=== PATIENT | female | born 2000 | race Caucasian/White ===

== ENCOUNTER 2020-10-02 06:46 | Emergency (ER) | payer OTHER, SELFPAY ==
--- NOTE | ~2020-10-02 | CT_ITS ---
EXAMINATION: CT abdomen pelvis w con EXAM DATE: 10/02/2020 08:05 INDICATION: RLQ pain . Status post kidney infection. TECHNIQUE: Spiral CT of the abdomen and pelvis was performed following intravenous injection of 100 m L Omnipaque 350. Axial, coronal and sagittal images were reviewed. The dose-length product (DLP) fo r this examination was 271.01 mGy-cm. The exposure was tailored according to patient size (auto mA e xposure control), and iterative reconstruction (ASIR) was used as additional dose reduction technique . There is no prior study for comparison. FINDINGS: The liver, spleen, adrenal glands and pancreas are unremarkable. Gallbladder is unremarkab le. No biliary obstruction. Portal and splenic veins are patent. Kidneys enhance symmetrically. T here is no hydronephrosis. The uterus and ovaries are unremarkable, no adnexal mass. The bladder i s undistended at time of imaging. There is no retroperitoneal or pelvic lymphadenopathy. The appendix is normal. The stomach and small bowel are unremarkable. There is moderate amount of c olonic stool. No free intraperitoneal gas. The heart is normal in size. There are no pericardial or pleural effusions. The lung bases are unremarkable. The bones are unremarkable. IMPRESSION: 1. No acute intra-abdominal findings. Normal appendix. Reviewed, dictated and finalized at location B. ER GUIDE
[2020-10-02 06:51] VITALS: BP 108/51; PULSE 104; RESP 22; TEMP 36.2; O2SAT 100
[2020-10-02 07:13] LABS: Add Urine Microscopic? YES; Appearance Urine Clear (Clear); Bilirubin Urine Negative (Negative); Blood Urine 2+ (Negative); Color Urine Yellow (Yellow); Glucose Urine UA Negative (Negative); Ketones Urine Negative (Negative); Leukocyte Esterase Ur Negative LEU/UL (Negative); Mucus Urine Rare /lpf; Nitrate Urine Negative (Negative); Protein Urine Negative (Negative); RBC Urine 0-2 /hpf (0-2); Specific Grav Ur 1.023 (1.001-1.035); Squamous Epithelial Cell Urine Few /hpf (Few); Urobilinogen Urine Negative mg/dL (<2.0)
--- NOTE | 2020-10-02 07:19 | ED.ABDPAIN ---
HPI - Abdominal Pain General Chief Complaint: Urogenital-Female Stated Complaint: kidney infection Time Seen by Provider: 10/02/20 07:10 History of Present Illness HPI narrative: Patient is a 19-year-old female who presents the ER with concerns for pyelonephritis. Patient reports she was having some burning pressure with urination about a week ago. She gets frequent UTIs that go away on their own so she did not think anything of it. 2 days ago she began to get discomfort going up into her back. She did a telehealth visit and was prescribed ciprofloxacin. Symptoms are not improving. She reports she is having pain into her abdomen and in her back. It is worse with movement. No fevers or chills. She did have some sweats and she has had some mild nausea. No alleviating factors. Related Data Home Medications Medication Instructions Recorded Confirmed ciprofloxacin HCl 10/02/20 Allergies Allergy/AdvReac Type Severity Reaction Status Date / Time No Known Allergies Allergy Verified 10/02/20 07:46 Review of Systems Review of Systems: All systems reviewed & are unremarkable except as noted in HPI and below Constitutional: Constitutional: Denies chills and Denies fever(s) Comments: Sweats Gastrointestinal: Gastrointestinal: Reports abdominal pain, Denies constipation, Denies diarrhea, Reports nausea and Denies vomiting Genitourinary: Genitourinary: Denies hematuria, Denies nocturia, Denies dysuria and Reports flank pain Musculoskeletal: Musculoskeletal: Reports back pain and Denies muscle cramps PMFSH Past Medical History Medical History (Updated 10/02/20 @ 08:57 by Maico Quintana MD) Healthy female adult Surgical History Surgical History (Updated 10/02/20 @ 07:19 by Maico Quintana MD) No history of previous surgery Social History Social History (Updated 10/02/20 @ 07:20 by Maico Quintana MD) Smoking status: Never smoker Gender identity (if verbalized by the patient): Female Sexual Orientation (if Verbalized by the Patient): Straight or Heterosexual Exam Narrative: Exam Narrative: GENERAL: Well-appearing, well-nourished, and in no acute distress. HEAD: Normocephalic, atraumatic. CHEST: Clear to auscultation. No respiratory distress. HEART: Regular rate and rhythm. Normal peripheral pulses. ABDOMEN: Soft, TTP in the RLQ, nondistended. No CVA tenderness. EXTREMITIES: Normal range of motion. No edema. BACK: No reproducible midline or paraspinal tenderness. NEURO: Alert and oriented x3. PSYCH: Normal mood and affect. Course Course Emergency Course: Patient informed of results. Will put on a stool softener as some of her discomfort may be related to fecal loading. Discussed that she should finish her antibiotics. Discharge home. Vital Signs Vital signs: Vital Signs Temperature 97.1 F L 10/02/20 06:51 Pulse Rate 104 H 10/02/20 06:51 Respiratory Rate 22 H 10/02/20 06:51 Blood Pressure 108/51 L 10/02/20 06:51 Pulse Oximetry 100 10/02/20 06:51 Temperature 97.1 F L 10/02/20 06:51 Pulse Rate 104 H 10/02/20 06:51 Respiratory Rate 22 H 10/02/20 06:51 Blood Pressure 108/51 L 10/02/20 06:51 Pulse Oximetry 100 10/02/20 06:51 MDM - Abdominal Pain Lab Data Result diagrams: 10/02/20 07:30 10/02/20 07:56 Labs: Lab Results 10/02/20 10/02/20 10/02/20 Range/Units 06:56 07:30 07:30 WBC 6.6 (4.5-10.0) K/mm3 RBC 4.63 (4.2-5.4) M/mm3 Hgb 13.4 (12.0-15.0) g/dL Hct 40.8 (37.0-47.0) % MCV 88.1 (80-100) fl MCH 28.9 (26-34) pg MCHC 32.8 (32-36) g/dl RDW 12.5 (11.5-14.5) % Plt Count 279 (150-375) k/mm3 MPV 9.1 (7.4-10.4) fl Immature Gran % (Auto) 0.3 (0-0.5) % Neut % (Auto) 42.1 L (45.5-73.1) % Lymph % (Auto) 45.0 H (18.3-44.2) % [place] % (Auto) 7.9 (2.6-8.5) % Eos % (Auto) 4.2 (0-4.4) % Baso % (Auto) 0.5 (0.2-1.2) % Lymph # (Auto) 2.97 (0.9-3.
[2020-10-02 07:47] LABS: Basophils Percent Auto 0.5 % (0.2-1.2); Eosinophils Absolute Auto 0.3 K/mm3 (0-0.3); Eosinophils Percent Auto 4.2 % (0-4.4); Hematocrit 40.8 % (37.0-47.0); Hemoglobin 13.4 g/dL (12.0-15.0); Immature Granulocyte Absolute 0.02 K/mm3 (0.00-0.031); Immature Granulocyte Percent A 0.3 % (0-0.5); Lymphocytes Absolute Auto 2.97 K/mm3 (0.9-3.2); Mean Corpuscular HGB Conc 32.8 g/dl (32-36); Mean Corpuscular Hemoglobin 28.9 pg (26-34); Mean Corpuscular Volume 88.1 fl (80-100); Mean Platelet Volume 9.1 fl (7.4-10.4); Monocytes Absolute Auto 0.5 K/mm3 (0.1-0.6); Monocytes Percent Auto 7.9 % (2.6-8.5); Neutrophils Absolute Auto 2.8 K/mm3 (1.3-6.7); Neutrophils Percent Auto 42.1 % (45.5-73.1); Platelet Count Result 279 k/mm3 (150-375); Red Blood Count 4.63 M/mm3 (4.2-5.4); Red Cell Distribution Width 12.5 % (11.5-14.5); White Blood Count 6.6 K/mm3 (4.5-10.0)
[2020-10-02 07:57] LABS: Anion Gap 9 mmol/L (8-16); Blood Urea Nitrogen 13 mg/dL (7-17); Calcium 9.4 mg/dL (8.4-10.2); Carbon Dioxide 28 mmol/L (22-30); Chloride 103 mmol/L (98-107); Estimated CRCL calculation 80 ml/min; Estimated Glomerular Filt Rate > 60; Glucose 102 mg/dL (65-105); Potassium 3.9 mmol/L (3.4-5.0); Sodium 140 mmol/L (137-145)
[2020-10-02 08:07] LABS: Estimated CRCL calculation 91 ml/min; Estimated Glomerular Filt Rate > 60
== END 2020-10-02 09:06 | disposition home or self-care (01) ==
PROVIDERS: Emergency Medicine; Emergency Provider Emergency Medicine
DX: K59.00 Constipation, unspecified (principal); M54.5 Low back pain
CPT/HCPCS: 36415; 74177; 80048; 81001; 81025; 85025; 99284; Q9967

== ENCOUNTER 2021-01-08 14:23 | Emergency (ER) | payer OTHER, MEDICAID, SELFPAY | END 2021-01-08 18:26 | disposition left against medical advice (07) | PROVIDERS: PCP Family Medicine | DX: Z53.21 Procedure and treatment not carried out due to patient leaving prior to being seen by health care provider (principal) | CPT/HCPCS: 99199 ==

== ENCOUNTER 2021-08-28 14:54 | Observation (INO) | payer OTHER, MEDICAID, SELFPAY ==
[2021-08-28 15:12] VITALS: BP 115/62; PULSE 92
[2021-08-28 15:37] LABS: Add Urine Microscopic? YES; Amorphous Sediment Urine Few; Appearance Urine Cloudy (Clear); Bacteria Urine Trace /hpf; Bilirubin Urine Negative (Negative); Blood Urine Negative (Negative); Color Urine Yellow (Yellow); Glucose Urine UA 1+ mg/dL (Negative); Ketones Urine Negative (Negative); Leukocyte Esterase Ur Trace LEU/UL (NEGATIVE); Mucus Urine Rare /lpf; Nitrate Urine Negative (Negative); Protein Urine 1+ mg/dL (Negative); Urobilinogen Urine Negative mg/dL (<2.0)
[2021-08-28] MEDS: NIFEdipine 30 MG TAB.ER.24 PO (15:47)
--- NOTE | 2021-08-28 16:12 | OBADM ---
This patient, Debi Merrill, admitted to the OB room OB Post 116 for observation. Patient/family oriented to hospital policies and general routines including ID bracelet, bed and alarms, visiting hours, pain management, procedures, bathroom and other care routines, personal items, smoking policy, room service/diet, and visiting hours. Patient/Family are encouraged to report perceived risks to care and to ask questions if they do not understand what they are told or what they should do.
--- NOTE | 2021-08-28 16:13 | PC.NURSE ---
1539- Spoke with Nedra Gonzales CNM, MELCHOR reveiwed. Orders for Procardia 30 XL once po now. Watch for 1 hour to see if procardia helps.
[2021-08-28] MEDS: TERBUTALINE SULFATE 1 MG/ML VIAL 0.25 MG SUB-Q (17:31)
--- NOTE | 2021-08-30 07:16 | PM.OBTRLD ---
OB - Triage/Final Diagnosis Visit Information Date of evaluation: 08/28/21 Reason for evaluation: threatened labor Comments/Additional reasons for admission: I have assessed the risk for this patient, Debi Merrill, and determined that she would benefit from observation care. Evaluation Laboratory results: Laboratory Tests 08/28/21 15:13 Urine Color Yellow Urine Appearance Cloudy H Urine pH 6.0 Ur Specific [place] 1.020 Urine Protein 1+ H Urine Glucose (UA) 1+ H Urine Ketones Negative Ur Blood (Man) Negative Urine Nitrate Negative Urine Bilirubin Negative Urine Urobilinogen Negative Ur Leukocyte Esterase Trace H Urine RBC 6-10 H Urine WBC 4-6 H Amorphous Sediment Few H Urine Bacteria Trace Urine Mucus Rare
== END 2021-08-28 19:15 | disposition home or self-care (01) ==
PROVIDERS: Advanced Practice Midwife; Admitting Provider Obstetrics & Gynecology; PCP Family Medicine; Visit Provider Obstetrics & Gynecology
DX: O47.03 False labor before 37 completed weeks of gestation, third trimester (principal); Z3A.25 25 weeks gestation of pregnancy
CPT/HCPCS: 81001; 84112; 87086; 96372; A9270; G0378; G0379; J3105

== ENCOUNTER 2021-09-17 08:08 | Observation (INO) | payer OTHER, MEDICAID, SELFPAY ==
[2021-09-17 08:34] VITALS: TEMP 37
[2021-09-17 08:39] VITALS: BP 100/62; PULSE 107
--- NOTE | 2021-09-17 08:51 | OBADM ---
This patient, Debi Merrill, admitted to the OB room OB Post 115 for observation. Patient/family oriented to hospital policies and general routines including ID bracelet, bed and alarms, visiting hours, pain management, procedures, bathroom and other care routines, personal items, smoking policy, room service/diet, and visiting hours. Patient/Family are encouraged to report perceived risks to care and to ask questions if they do not understand what they are told or what they should do.
[2021-09-17 09:33] LABS: Add Urine Microscopic? YES; Appearance Urine Clear (Clear); Bilirubin Urine Negative (Negative); Blood Urine Negative (Negative); Color Urine Straw (Yellow); Glucose Urine UA Negative (Negative); Ketones Urine Negative (Negative); Leukocyte Esterase Ur Trace LEU/UL (Negative); Mucus Urine Rare /lpf; Nitrate Urine Negative (Negative); Protein Urine Negative (Negative); RBC Urine 0-2 /hpf (0-2); Squamous Epithelial Cell Urine Few /hpf (Few); Urobilinogen Urine Negative mg/dL (<2.0); WBC Urine 0-3 /hpf
[2021-09-17] MEDS: CYCLOBENZAPRINE HCL 10 MG TABLET PO (09:57)
--- NOTE | 2021-09-17 11:09 | PC.NURSE ---
Bethany JENNINGS called, read UA results and informed pt has been sleeping since she took the flexeril. When I woke the pt up to ask how her pain was, she said she just has a little pain in her lower back. Discharge orders received.
[2021-09-17 11:43] VITALS: BMI 26.6
--- NOTE | 2021-09-20 07:27 | PM.OBTRLD ---
OB - Triage/Final Diagnosis Visit Information Date of evaluation: 09/17/21 Reason for evaluation: threatened labor Comments/Additional reasons for admission: I have assessed the risk for this patient, Debi Merrill, and determined that she would benefit from observation care. Evaluation Laboratory results: Laboratory Tests 09/17/21 08:36 Urine Color Straw Urine Appearance Clear Urine pH 7.0 Ur Specific [place] 1.010 Urine Protein Negative Urine Glucose (UA) Negative Urine Ketones Negative Ur Blood (Man) Negative Urine Nitrate Negative Urine Bilirubin Negative Urine Urobilinogen Negative Leukocyte Esterase Rfl Trace H Urine RBC 0-2 Urine WBC 0-3 Ur Squamous Epith Cells Few Urine Mucus Rare
== END 2021-09-17 11:35 | disposition home or self-care (01) ==
PROVIDERS: Advanced Practice Midwife; Admitting Provider Obstetrics & Gynecology; PCP Family Medicine; Visit Provider Obstetrics & Gynecology
DX: O47.03 False labor before 37 completed weeks of gestation, third trimester (principal); Z3A.28 28 weeks gestation of pregnancy
CPT/HCPCS: 81001; A9270; G0378; G0379

== ENCOUNTER 2021-10-10 13:03 | Observation (INO) | payer OTHER, MEDICAID, SELFPAY ==
[2021-10-10] VITALS (9 sets, daily range): BP systolic 99–118; BP diastolic 59–74; PULSE 73–98; TEMP 37.1–37.2; BMI 28.3
--- NOTE | ~2021-10-10 | US_ITS ---
EXAMINATION: US OB limited DATE: 10/10/2021 16:39 INDICATION: Contractions during second trimester TECHNIQUE: Real-time ultrasound of the pelvis was performed. The interpreting radiologist was not pre sent for the study. COMPARISON: None. FINDINGS: There is a single living fetus in vertex presentation. The placenta is posterior. The cervi riley length is 3 cm. No cervical funneling is identified. cardiac activity and movement ar e noted. heart rate is 127 beats per minute (bpm). The amniotic fluid index is subjectively nor mal. IMPRESSION: 1. Single living fetus in vertex presentation. 2. Normal appearing placenta and cervix. Reviewed, dictated and finalized at location F. ONCOLOGY CLINICAL
--- NOTE | 2021-10-10 14:42 | OBADM ---
This patient, Debi Merrill, admitted to the OB room 113 for observation for cramping. Patient/family oriented to hospital policies and general routines including ID bracelet, bed and alarms, visiting hours, pain management, procedures, bathroom and other care routines, personal items, smoking policy, room service/diet, and visiting hours. Patient/Family are encouraged to report perceived risks to care and to ask questions if they do not understand what they are told or what they should do.
[2021-10-10] MEDS: NIFEdipine 30 MG TAB.ER.24 PO (15:17)
--- NOTE | 2021-10-10 16:12 | PC.NURSE ---
To U/S per wheelchair.
[2021-10-10 16:22] LABS: Add Urine Microscopic? YES; Appearance Urine Clear (Clear); Bilirubin Urine Negative (Negative); Blood Urine Negative (Negative); Color Urine Straw (Yellow); Glucose Urine UA Negative (Negative); Ketones Urine Trace mg/dL (Negative); Leukocyte Esterase Ur Negative LEU/UL (Negative); Mucus Urine Rare /lpf; Nitrate Urine Negative (Negative); Protein Urine Negative (Negative); RBC Urine 0-2 /hpf (0-2); Specific Grav Ur 1.012 (1.001-1.035); Urobilinogen Urine Negative mg/dL (<2.0); WBC Urine 0-3 /hpf
--- NOTE | 2021-10-10 16:38 | PC.NURSE ---
Pt back from U/S. monitor reapplied.
[2021-10-10 17:02] LABS: Fetal Fibronectin Negative
--- NOTE | 2021-10-16 07:16 | P.PNOB_ITS ---
OB - Triage/Final Diagnosis Visit Information Date of evaluation: 10/10/21 Reason for evaluation: threatened labor Comments/Additional reasons for admission: I have assessed the risk for this patient, Debi Merrill, and determined that she would benefit from observation care. Evaluation Laboratory results: Laboratory Tests 10/10/21 10/10/21 15:12 15:13 Urine Color Straw Urine Appearance Clear Urine pH 6.0 Ur Specific [place] 1.012 Urine Protein Negative Urine Glucose (UA) Negative Urine Ketones Trace Ur Blood (Man) Negative Urine Nitrate Negative Urine Bilirubin Negative Urine Urobilinogen Negative Leukocyte Esterase Rfl Negative Urine RBC 0-2 Urine WBC 0-3 Urine Mucus Rare Fibronectin Negative
== END 2021-10-10 18:39 | disposition home or self-care (01) ==
LOC: ANHOBPP 18:06 → ANHOBOP 10-16 10:32 → ANHOBPP 10-16 10:32 → ANHOBOP 10-16 10:32 → ANHOBPP 10-16 10:32
PROVIDERS: Advanced Practice Midwife; Admitting Provider Obstetrics & Gynecology; PCP Family Medicine; Visit Provider Obstetrics & Gynecology
DX: O47.9 False labor, unspecified (principal); Z3A.00 Weeks of gestation of pregnancy not specified
CPT/HCPCS: 76815; 81001; 82731; 84112; 99199; A9270; G0378; G0379

== ENCOUNTER 2021-10-23 17:31 | Observation (INO) | payer OTHER, MEDICAID, SELFPAY ==
--- NOTE | 2021-10-23 17:39 | PM.IMHP ---
H&P: HPI History of Present Illness Date/Time: 10/23/21 17:39 at 33.2 weeks gestation c/o cramping and increased rectal pressure, 1/70/-2 in office, ffn negative on 10/10/21, and at that time cervix was closed, negative urine dip in office today. 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 hydralozine for anxiety. Chief Complaint: contractions/pressure Review of Systems Review of Systems: All systems reviewed & are unremarkable except as noted in HPI and below PMFSH Past Medical History Medical History (Updated 10/03/20 @ 00:00 by Wilber Wiseman) Healthy female adult Surgical History Surgical History (Updated 10/02/20 @ 07:19 by Maico Quintana MD) No history of previous surgery Social History Social History (Updated 10/02/20 @ 07:20 by Maico Quintana MD) Smoking status: Never smoker Gender identity (if verbalized by the patient): Female Sexual Orientation (if Verbalized by the Patient): Straight or Heterosexual Meds Home Medications and Allergies Home Medications Medication Instructions Recorded Confirmed Type PNV cmb#95-ferrous fumarate-FA 1 tablet PO HS 08/28/21 10/10/21 History [] Allergies Allergy/AdvReac Type Severity Reaction Status Date / Time No Known Allergies Allergy Verified 10/02/20 07:46 Exam Const: General: cooperative, healthy appearing, comfortable and no acute distress Assessment and Plan Additional Plan 1. contractions monitor plan betamethasone
[2021-10-23 17:49] VITALS: BP 112/62; PULSE 80
[2021-10-23 18:01] VITALS: BP 104/61; PULSE 90
[2021-10-23 18:15] VITALS: BP 109/63; PULSE 98; RESP 18; TEMP 36.7
[2021-10-23 18:30] VITALS: BP 106/67; PULSE 88
[2021-10-23] MEDS: BETAMETHASONE SOD PHOS/ACETATE 30 MG/5 ML VIAL 12 MG IM (18:36)
[2021-10-23 19:07] LABS: Add Urine Microscopic? NO; Appearance Urine Clear (Clear); Bilirubin Urine Negative (Negative); Blood Urine Negative (Negative); Color Urine Colorless (Yellow); Glucose Urine UA Negative (Negative); Ketones Urine Negative (Negative); Leukocyte Esterase Ur Negative LEU/UL (Negative); Nitrate Urine Negative (Negative); Protein Urine Negative (Negative); Urobilinogen Urine Negative mg/dL (<2.0)
[2021-10-23] MEDS: TERBUTALINE SULFATE 1 MG/ML VIAL (19:17)
[2021-10-23 19:40] LABS: Specific Grav Ur 1.004 (1.001-1.035)
== END 2021-10-23 20:35 | disposition home or self-care (01) ==
PROVIDERS: Advanced Practice Midwife; Admitting Provider Obstetrics & Gynecology; PCP Family Medicine; Visit Provider Obstetrics & Gynecology
DX: O60.03 Preterm labor without delivery, third trimester (principal); Z3A.33 33 weeks gestation of pregnancy
CPT/HCPCS: 81003; 96372; G0378; G0379; J0702; J3105

== ENCOUNTER 2021-10-24 09:35 | Observation (INO) | payer OTHER, MEDICAID, SELFPAY ==
[2021-10-24] VITALS (44 sets, daily range): BP systolic 100–131; BP diastolic 54–73; PULSE 97–130; TEMP 36.8–37.4; O2SAT 94–100; BMI 28.0
[2021-10-24] MEDS: LACTATED RINGERS 1,000 ML 150 ML IV CONT (10:26)
[2021-10-24 10:52] LABS: Add Urine Microscopic? YES; Appearance Urine Clear (Clear); Bilirubin Urine Negative (Negative); Blood Urine Negative (Negative); Color Urine Colorless (Yellow); Glucose Urine UA Negative (Negative); Ketones Urine 1+ mg/dL (Negative); Leukocyte Esterase Ur Negative LEU/UL (NEGATIVE); Mucus Urine Rare /lpf; Nitrate Urine Negative (Negative); Protein Urine Negative (Negative); RBC Urine 0-2 /hpf (0-2); Specific Grav Ur 1.008 (1.001-1.035); Squamous Epithelial Cell Urine Rare /hpf (Few); Urobilinogen Urine Negative mg/dL (<2.0); WBC Urine 0-3 /hpf (0-3)
[2021-10-24] MEDS: NIFEdipine 10 MG CAPSULE PO (11:15)
[2021-10-24] MEDS: MAGNESIUM SULF 4 GM/WATER100ML 4 GM/100 ML BAG IVPB (13:16)
[2021-10-24] MEDS: MAGNESIUM SULF 20GM/WATER500ML 500 ML 50 MG IV CONT (13:46)
[2021-10-24] MEDS: TERBUTALINE SULFATE 1 MG/ML VIAL 0.25 MG SUB-Q (14:07)
[2021-10-24] MEDS: AMPICILLIN 2 GM/NS 100 ML 2 GM/100 ML BAG 200 GM (14:34)
--- NOTE | 2021-10-24 14:42 | PM.IMHP ---
H&P: HPI History of Present Illness Date/Time: 10/24/21 14:42 20 y/o @ 33w3d here with contractions. Was treated with terbutaline and steroids last night. Sent home stable. Returned to office this morning after increased pain and contractions overnight. Chief Complaint: Contractions Review of Systems Review of Systems: All systems reviewed & are unremarkable except as noted in HPI and below Constitutional: Constitutional: Reports as per HPI and Reports no additional constitutional complaints Eyes: Eyes: Reports as per HPI ENT: Reports system reviewed and no additional complaints, except as documented Cardiovascular: Cardiovascular: Reports as per HPI Respiratory: Respiratory: Reports as per HPI Gastrointestinal: Gastrointestinal: Reports as per HPI Genitourinary: Genitourinary: Reports no additional female genitourinary complaints Musculoskeletal: Musculoskeletal: Reports no additional musculoskeletal complaints Integumentary/Breasts: Skin/Breast: Reports system reviewed and no additional complaints, except as docu Neurologic: Reports system reviewed and no additional complaints, except as documented Psychiatric: Psychiatric: Reports no additional psychiatric complaints Endocrine: Endocrine: Reports no additional endocrine complaints Hematologic/Lymphatic: Hematologic/Lymphatic: Reports no additional hematologic/lymphatic complaints Allergic/Immunologic: Allergic/Immunologic: Reports no additional allergic/immunologic complaints [facility] Past Medical History Medical History Healthy female adult Surgical History Surgical History No history of previous surgery Social History Social History Smoking status: Never smoker Gender identity (if verbalized by the patient): Female Sexual Orientation (if Verbalized by the Patient): Straight or Heterosexual Meds Home Medications and Allergies Home Medications Medication Instructions Recorded Confirmed Type PNV cmb#95-ferrous fumarate-FA 1 tablet PO HS 08/28/21 10/10/21 History [] Allergies Allergy/AdvReac Type Severity Reaction Status Date / Time No Known Allergies Allergy Verified 10/02/20 07:46 Vital Signs Vital Signs - 24 hr 10/24/21 10:39 10/24/21 11:00 10/24/21 11:30 Temperature 99.3 F Pulse Rate 97 119 H 102 H Blood Pressure 118/70 106/60 116/66 Pulse Oximetry 10/24/21 12:00 10/24/21 12:30 10/24/21 13:00 Temperature Pulse Rate 124 H 110 H 110 H Blood Pressure 106/54 L 116/63 108/69 Pulse Oximetry 10/24/21 13:09 10/24/21 13:14 10/24/21 13:18 Temperature Pulse Rate 119 H Blood Pressure 109/64 Pulse Oximetry 94 100 10/24/21 13:19 10/24/21 13:24 10/24/21 13:29 Temperature Pulse Rate Blood Pressure Pulse Oximetry 98 98 98 10/24/21 13:30 10/24/21 13:34 10/24/21 13:39 Temperature Pulse Rate 117 H Blood Pressure 108/59 L Pulse Oximetry 98 100 10/24/21 13:44 10/24/21 13:45 10/24/21 13:49 Temperature Pulse Rate 110 H Blood Pressure 120/65 Pulse Oximetry 100 100 10/24/21 13:54 10/24/21 13:59 10/24/21 14:00 Temperature Pulse Rate 107 H Blood Pressure 114/73 Pulse Oximetry 100 100 10/24/21 14:04 10/24/21 14:12 10/24/21 14:16 Temperature Pulse Rate Blood Pressure Pulse Oximetry 100 98 100 10/24/21 14:17 10/24/21 14:20 10/24/21 14:22 Temperature 98.3 F Pulse Rate Blood Pressure Pulse Oximetry 100 100 10/24/21 14:29 10/24/21 14:31 10/24/21 14:34 Temperature Pulse Rate 120 H Blood Pressure 131/67 Pulse Oximetry 100 99 10/24/21 14:39 Temperature Pulse Rate Blood Pressure Pulse Oximetry 100 Exam Const: General: cooperative and healthy appearing Orientation/consciousness: oriented to person, oriented
[2021-10-24] MEDS: LACTATED RINGERS 1,000 ML 75 ML IV CONT (15:27)
== END 2021-10-24 15:50 | disposition short-term general hospital (02) ==
LOC: ANHOBPP 09:41
PROVIDERS: Advanced Practice Midwife; Admitting Provider Obstetrics & Gynecology; PCP Family Medicine; Visit Provider Obstetrics & Gynecology
DX: O60.03 Preterm labor without delivery, third trimester (principal); Z3A.33 33 weeks gestation of pregnancy
CPT/HCPCS: 81001; 84112; 96361; 96365; 96367; 96372; A9270; G0378; G0379; J0290; J3105; J3475; J7120

== ENCOUNTER 2021-11-18 08:31 | Observation (INO) | payer OTHER, MEDICAID, SELFPAY ==
--- NOTE | 2021-11-18 08:31 | OBADM ---
This patient, Debi Merrill, admitted to the OB room Labor/Delivery/Recovery 104 for observation. Patient/family oriented to hospital policies and general routines including ID bracelet, bed and alarms, visiting hours, pain management, procedures, bathroom and other care routines, personal items, smoking policy, room service/diet, and visiting hours. Patient/Family are encouraged to report perceived risks to care and to ask questions if they do not understand what they are told or what they should do.
--- NOTE | 2021-11-20 07:24 | PM.OBTRLD ---
OB - Triage/Final Diagnosis Visit Information Date of evaluation: 11/18/21 Reason for evaluation: threatened labor Comments/Additional reasons for admission: I have assessed the risk for this patient, Debi Anton Merrill, and determined that she would benefit from observation care.
== END 2021-11-18 11:45 | disposition home or self-care (01) ==
PROVIDERS: Admitting Provider Obstetrics & Gynecology; PCP Advanced Practice Midwife; Visit Provider Obstetrics & Gynecology
DX: O47.1 False labor at or after 37 completed weeks of gestation (principal); Z3A.37 37 weeks gestation of pregnancy
CPT/HCPCS: G0378; G0379

== ENCOUNTER 2021-11-20 16:59 | Outpatient (RCR) | payer OTHER, MEDICAID, SELFPAY ==
--- NOTE | ~2021-11-20 | US_ITS ---
US OB BPP wo non-stress DATE: 11/20/2021 18:10 INDICATION: heart decelerations TECHNIQUE: Real-time imaging and Doppler analysis COMPARISON: 10/10/2021 Limited obstetrical ultrasound examination FINDINGS: Live morales intrauterine gestation, fetus in vertex presentation, longitudinal lie, feta l heart rate of 155 bpm. Posterior placenta. Subjectively normal amount of amniotic fluid. BIOPHYSICAL PROFILE reported by operations and maintenance technician: breathin out of 2 movement: 2 out of 2 tone: 2 out of 2 Amniotic fluid pocket: 2 out of 2 Total score: 8 out of 8 IMPRESSION: Normal biophysical profile score of 8 out of 8 Reviewed, dictated and finalized at Location [facility]. Reviewed, dictated and finalized at location A. AIN ROOM SERVICE
[2021-11-20 17:29] VITALS: BP 106/61; PULSE 89
[2021-11-20 19:42] VITALS: BP 106/61; PULSE 89
== END 2022-02-17 08:58 | disposition home or self-care (01) ==
LOC: ANHOBOP 16:59
PROVIDERS: PCP Family Medicine; Visit Provider Advanced Practice Midwife
DX: O36.8330 Maternal care for abnormalities of the fetal heart rate or rhythm, third trimester, not applicable or unspecified (principal); Z3A.37 37 weeks gestation of pregnancy
CPT/HCPCS: 59025; 76819

== ENCOUNTER 2021-11-28 02:39 | Observation (INO) | payer OTHER, MEDICAID, SELFPAY ==
[2021-11-28 03:05] VITALS: BP 114/69; PULSE 79
[2021-11-28 03:10] VITALS: BMI 29.7
--- NOTE | 2021-11-28 03:11 | OBADM ---
This patient, Debi Merrill, admitted to the OB room Labor/Delivery/Recovery 106 for observation. Patient/family oriented to hospital policies and general routines including ID bracelet, bed and alarms, visiting hours, pain management, procedures, bathroom and other care routines, personal items, smoking policy, room service/diet, and visiting hours. Patient/Family are encouraged to report perceived risks to care and to ask questions if they do not understand what they are told or what they should do.
[2021-11-28 03:16] VITALS: BP 108/73; PULSE 103; TEMP 37.1
[2021-11-28 03:31] VITALS: BP 92/57; PULSE 80
--- NOTE | 2021-11-30 07:22 | PM.OBTRLD ---
OB - Triage/Final Diagnosis Visit Information Date of evaluation: 11/28/21 Reason for evaluation: threatened labor Comments/Additional reasons for admission: I have assessed the risk for this patient, Debi Anton Merirll, and determined that she would benefit from observation care.
== END 2021-11-28 04:07 | disposition home or self-care (01) ==
PROVIDERS: Admitting Provider Obstetrics & Gynecology; PCP Family Medicine; Visit Provider Obstetrics & Gynecology
DX: O47.1 False labor at or after 37 completed weeks of gestation (principal); Z3A.38 38 weeks gestation of pregnancy
CPT/HCPCS: G0378; G0379

== ENCOUNTER 2021-11-28 21:50 | Inpatient (IN) | payer OTHER, MEDICAID, SELFPAY ==
[2021-11-28] VITALS (32 sets, daily range): BP systolic 102–133; BP diastolic 49–88; PULSE 73–104; TEMP 36.8; O2SAT 100; BMI 29.7
[2021-11-28] MEDS: LACTATED RINGERS 1,000 ML 125 ML IV CONT ×2 (22:10→22:56)
--- NOTE | 2021-11-28 22:22 | LDADM ---
This patient, Debi Merrill, was admitted to Labor/Delivery/Recovery 106 on 11/28/21 at 22:09. Plans for labor, pain management and were discussed with patient. Patient/family oriented to hospital policies and general routines including ID bracelet, bed and alarms, visiting hours, pain management, procedures, bathroom and other care routines, personal items, smoking policy, room service/diet and guest tray routines, security routines, and visiting hours. Patient/Family are encouraged to report perceived risks to care and to ask questions if they do not understand what they are told or what they should do. See OBIX for further documentation.
[2021-11-28 22:34] LABS: Basophils Absolute Auto 0.1 K/mm3 (0.0-0.1); Basophils Percent Auto 0.3 % (0.2-1.2); Eosinophils Absolute Auto 0.2 K/mm3 (0-0.3); Eosinophils Percent Auto 1.2 % (0-4.4); Hematocrit 29.5 % (37.0-47.0); Hemoglobin 9.7 g/dL (12.0-15.0); Immature Granulocyte Absolute 0.17 K/mm3 (0.00-0.031); Lymphocytes Percent Auto 23.1 % (18.3-44.2); Mean Corpuscular HGB Conc 32.9 g/dl (32-36); Mean Corpuscular Hemoglobin 25.7 pg (26-34); Mean Corpuscular Volume 78.2 fl (80-100); Mean Platelet Volume 9.6 fl (7.4-10.4); Monocytes Absolute Auto 1.2 K/mm3 (0.1-0.6); Neutrophils Absolute Auto 11.7 K/mm3 (1.3-6.7); Neutrophils Percent Auto 67.4 % (45.5-73.1); Platelet Count Result 281 k/mm3 (150-375); Red Blood Count 3.77 M/mm3 (4.2-5.4); Red Cell Distribution Width 15.2 % (11.5-14.5); White Blood Count 17.3 K/mm3 (4.5-10.0)
--- NOTE | 2021-11-28 23:51 | WPDANESEPPF ---
Anes - Initial Pre Proc Eval Procedure: labor epidural Date/Time: 11/28/21 23:51 Surgeon: Jung Roblero MD Pre Op Diagnosis: labor pain Pre Op Diagnosis: Contractions Patient Data Age: 21 Gender: F Height: 1.6 m Weight: 76 kg Last Vital Signs Temp 36.8 C 11/28/21 22:49 Pulse 80 11/28/21 23:51 BP 115/69 11/28/21 23:51 Pulse Ox 100 11/28/21 23:50 Allergies Allergy/AdvReac Type Severity Reaction Status Date / Time No Known Allergies Allergy Verified 10/02/20 07:46 Home Medications Medication Instructions Recorded Confirmed Type PNV cmb#95-ferrous fumarate-FA 1 tablet PO HS 08/28/21 11/28/21 History [] Laboratory Tests 11/28/21 11/28/21 22:23 22:23 WBC 17.3 K/mm3 H K/mm3 (4.5-10.0) RBC 3.77 M/mm3 L M/mm3 (4.2-5.4) Hgb 9.7 g/dL L D g/dL (12.0-15.0) Hct 29.5 % L % (37.0-47.0) MCV 78.2 fl L fl (80-100) MCH 25.7 pg L pg (26-34) MCHC 32.9 g/dl g/dl (32-36) RDW 15.2 % H % (11.5-14.5) Plt Count 281 k/mm3 k/mm3 (150-375) MPV 9.6 fl fl (7.4-10.4) Immature Gran % (Auto) 1.0 % H % (0-0.5) Neut % (Auto) 67.4 % % (45.5-73.1) Lymph % (Auto) 23.1 % % (18.3-44.2) [place] % (Auto) 7.0 % % (2.6-8.5) Eos % (Auto) 1.2 % % (0-4.4) Baso % (Auto) 0.3 % % (0.2-1.2) Lymph # (Auto) 4.00 K/mm3 H K/mm3 (0.9-3.2) [place] # (Auto) 1.2 K/mm3 H K/mm3 (0.1-0.6) Eos # (Auto) 0.2 K/mm3 K/mm3 (0-0.3) Baso # (Auto) 0.1 K/mm3 K/mm3 (0.0-0.1) Abs Immat Gran (auto) 0.17 K/mm3 H K/mm3 (0.00-0.031) Absolute Neuts (auto) 11.7 K/mm3 H K/mm3 (1.3-6.7) Absolute Nucleated RBC 0.0 K/mm3 K/mm3 (0.0-0.012) Nucleated RBC % 0.0 % % (0.0-0.2) RPR Pending Patient hx anesthesia problems: none Family hx anesthesia problems: none Results Review: All pre-operative results and documents have been reviewed as part of the pre-operative evaluation. [facility] Past Medical History Medical History (Updated 11/28/21 @ 23:07 by Madeline Rizvi RN) Healthy female adult Surgical History Surgical History No history of previous surgery Family History Family History (Updated 11/28/21 @ 22:35 by Madeline Rizvi RN) Grandparent Lung cancer Hypertension Diabetes mellitus Social History Social History Smoking status: Never smoker Second hand tobacco smoke exposure: No Substance use: never Gender identity (if verbalized by the patient): Female Sexual Orientation (if Verbalized by the Patient): Straight or Heterosexual Spiritual care concerns: No Anes - Eval Final PreProcedure Day of Procedure 11/28/21 23:51 Patient weight: overweight ASA classification: II Anesthesia type and monitoring: regional epidural and standard monitoring Results Review: All pre-operative results and documents have been reviewed as part of the pre-operative evaluation. Informed Consent: The patient's anesthetic plan and its attendant risks and benefits were discussed with the patient/family/POA. Questions were solicited and answers provided to the satisfaction of the patient/family/POA.
[2021-11-29] VITALS (52 sets, daily range): BP systolic 89–126; BP diastolic 39–74; PULSE 63–106; RESP 17–18; TEMP 36.3–37.2; O2SAT 99–100
[2021-11-29] MEDS: ONDANSETRON INJ 4 MG/2 ML VIAL IV PUSH (00:18)
[2021-11-29] MEDS: OXYTOCIN 30 UNITS/NS 500 ML 30 UNITS/500 ML BAG IV CONT (00:48)
[2021-11-29] MEDS: OXYTOCIN 30 UNITS/NS 500 ML 30 UNITS/500 ML BAG 125 UNITS IV CONT (03:37)
[2021-11-29] MEDS: COSYNTROPIN 0.25 MG/ML VIAL 1 MG IV PUSH (04:42)
--- NOTE | 2021-11-29 06:45 | OBPPTRN ---
Patient transferred to post room # 288 via wheelchair. Support person present. Oriented to unit, room, information board, rooming in, admission packet and security measures. Patient verbalizes understanding.
--- NOTE | 2021-11-29 08:18 | PC.NURSE ---
[id number] Introductions were made and mother led the discussion of her desires and plans to feed her baby. Reviewed handwashing to prevent infection before and after taking care of her baby. Infant is swaddled in mothers arm demonstrating feeding cues with sticking out tongue. Mother verbalizes she is able to independently latch , however, bilateral nipples are excoriated. Discussed how to watch for early feeding cues visual handout given to mom and maternal mother), then placed skin to skin. Discussed feeding baby when infant is ready and to aim for 8-12 times in 24 hours for baby wellness and milk production. Reviewed positioning/alignment with the use of the mom and baby guide. Reviewed there is to be no pain with , how to detach from the breast, visuals to watch for to confirm effective . Reviewed effective latching with resources with visual handout/mom and baby guide. Use of warm, wet compress to nipples and air dry for improved comfort. Infant sleepy and demonstrating minimal feeding cues. Infant placed in the bassinet to stimulate wakefulness while mother eats her breakfast. Mother has verbalized understanding watching for feeding cues for responsive feeding or how to stimulate to initiate from the start of the last feeding. Mother voiced understanding to feed infant when she sees feeding cues, 8-12 times in 24 hours approximately every 2-3 hours from the start of the last feeding, to call for assistance or she has discomfort with nursing. Reported to primary RN.
--- NOTE | 2021-11-29 10:04 | PC.NURSE ---
0840 - Mother demonstrate understanding stimulating for wakefulness. is either skin to skin with mother or being stimulated with touch on her lap. is gaggy at times, sleepy, ineffective attempts to the breast with a nipple shield and without. Mom expresses colostrum and places it on inside of the lips of the baby. worked with until 904, then RN reported to primary RN. Primary RN plans to check a blood sugar soon. 1010 - Blood sugar checked and results are appropriate. Infant is gaggy in the nursery with testing. 1030 - Breast pump provided due to ineffective feeding and requested by mother. Reviewed information regarding pump care, hand washing, nipple care and pumping 8 times in 24 hours (1-2 at night) for 10-15 minutes. Collection and storage of breastmilk reviewed and reinforced with mom and baby guide. Encouraged mom to place skin to skin, breast massage and use hand expression and/or a breast pump in a relaxing atmosphere. Reviewed recording pumping schedule on the feeding sheet. RN fed 2.5 ml of human milk to infant with a syringe with mom holding baby. Reported to primary RN.
--- NOTE | 2021-11-29 10:11 | P.PCNOB_ITS ---
OB - Delivery Note Procedure Delivery date: 11/29/21 Procedure: vaginal delivery Induction method: None Delivery augmentation: Rupture of Membranes and Pitocin Delivery monitor: External FHT and External Uterine Route of delivery: Episiotomy description: None Laceration Description: Perineal - 1st Degree Delivery repair: vicryl Specimen: Yes Quantitative Blood Loss (ml): 150 Anesthesia type: Epidural Disposition: floor [place] Baby Date of : 11/29/21 Time of : 02:24 Weeks of gestation at delivery: 38 gender: Male Weight (pounds): 7 Weight (ounces): 11 presentation: vertex position: Left Occiput Anterior Placenta delivery description: Spontaneous Cord Vessel Description: 3 Vessels, Clamped/Cut and Delayed Cord Clamping score one minute: 9 score five minutes: 9 Narrative: delayed cord clamping x 3 minutes, mother and baby skin to skin in stable condition
[2021-11-29] MEDS: POLYSACCHARIDE IRON COMPLEX 150 MG CAPSULE PO ×2 (12:09→17:36)
[2021-11-29] MEDS: DOCUSATE SODIUM 100 MG CAPSULE PO ×2 (12:09→17:36)
[2021-11-29] MEDS: MULTIVIT/MIN/PREN/FOL AC/IRON TABLET 1 TAB PO (12:09)
[2021-11-29] MEDS: IBUPROFEN 600 MG TABLET PO ×2 (12:09→19:08)
[2021-11-29] MEDS: ACETAMINOPHEN 325 MG TABLET 650 MG PO (15:46)
--- NOTE | 2021-11-29 16:42 | PCCCNOTE ---
Care Coordination Consult: Met with pt. and pt.'s mother. This is pt.'s second child, she has a two year old at home. Pt. lives at home with her mother and son currently. They have all necessary supplies at home including a car seat, crib, clothing, diapers, and formula. Pt. is hoping to breastfeed at discharge and has a breastpump at home. Provided resources. Pt. is unsure of whether she will utilize [place] services at discharge but has the information. Pt. denies any further needs. Reports supportive family and friends. Anticipates discharge tomorrow.
[2021-11-30] VITALS: BP 100/57; PULSE 72; RESP 18; TEMP 36.2; O2SAT 97
[2021-11-30 05:46] LABS: Hematocrit 26.6 % (37.0-47.0); Hemoglobin 8.3 g/dL (12.0-15.0)
--- NOTE | 2021-11-30 07:48 | P.PNOB_ITS ---
OB - PN: Subj Subjective Date/time seen: 11/30/21 07:48 Patient comments: no complaints baby status: doing well Scroggins feeding status: exclusively breast feeding OB - PN: Obj Data Labs CBC & Chem 7: 11/30/21 02:56 Labs: Laboratory Results - last 24 hr 11/30/21 02:56 Hgb 8.3 L Hct 26.6 L OB - PN A/P Plan day: 1 Plan: routine care and discharge home Time Spent With Patient Time: Total time spent is greater than 50% in coordination of care (as do cumented) at patient's floor/unit and/or counseling patient: Review of Systems Review of Systems: All systems reviewed & are unremarkable except as noted in HPI and below Exam Const: General: cooperative, healthy appearing and comfortable
--- NOTE | 2021-11-30 07:49 | P.DS_ITS ---
DS: Admitting Diagnosis Discharge Date 11/30/21 Admitting Diagnosis labor OB - DS: Summary OB Procedures : None OB Procedures Intrapartum: Spontaneous Vag Delivery OB Procedures: : None Time Spent with Patient Time attestation: Total time spent providing and/or coordinating discharge services: DS: Data Data Completed and Pending Pending studies at discharge: Pending at discharge 11/29/21 13:16 Surgical [PTH] Routine Labs on day of discharge: Labs from last 24 hours 11/30/21 02:56 Hgb 8.3 L Hct 26.6 L Discharge Plan Discharge Attending physician on discharge: Jung Roblero Discharging Clinician: Herminia Gonzales Patient Disposition: Home, Self-Care Activity: pelvic rest Diet: regular Patient Instructions: Antibiotic Form Stand Alone Forms: General Discharge Information Follow-up/Referrals: Herminia Gonzales CNM [Certified Nurse Writing Center Director] - 4 Weeks Discharge Medications: Continued PNV [id number] fumarate-FA [] 28 mg iron- 800 mcg Tablet 1 tablet PO HS RF: 0 Date of admission: 11/28/21 22:09 Primary Care Provider: Merry Augustine Admitting Provider: Jung Roblero Attending physician on admission: Jung Roblero Condition: Stable
[2021-11-30] MEDS: POLYSACCHARIDE IRON COMPLEX 150 MG CAPSULE PO (09:03)
[2021-11-30] MEDS: MULTIVIT/MIN/PREN/FOL AC/IRON TABLET 1 TAB PO (09:03)
[2021-11-30] MEDS: IBUPROFEN 600 MG TABLET PO (09:03)
[2021-11-30] MEDS: DOCUSATE SODIUM 100 MG CAPSULE PO (09:03)
[2021-11-30 09:30] VITALS: BP 99/55; PULSE 102; RESP 14; TEMP 36.7; O2SAT 98
[2021-11-30] MEDS: ACETAMINOPHEN 325 MG TABLET 650 MG PO (11:26)
--- NOTE | 2021-11-30 11:29 | PC.NURSE ---
Pt complains of pretty severe headache that has not been relieved with Motrin. She states pain is better when she is still and the room is darkened, but worsens as she does ADL's. She states that she feels like the pain is making her eye twitch and that when she looks up it makes the pain in her head worse. She denies any blurry vision or visual disturbances. Denies epigastric pain. BP with in normal limits for this patient. Instructed patient to lay down flat to see if headache would dissipate. She did experience a wet tap with her epidural placement in labor.
--- NOTE | 2021-11-30 11:53 | PC.NURSE ---
Pt reports feeling much better after laying flat for 10 minutes. Anesthesia notified of symptoms.
--- NOTE | 2021-11-30 12:35 | P.PCNANE_ITS ---
Anes - Epidural Blood Patch PN Date/Time: 11/30/21 12:35 Consent: I have discussed with the patient/family/POA, the rationale of a lumbar epidural autologous blood patch for the treatment of post-dural puncture headache (spinal headache), including associated potential risks, benefits, comp lications and side effects. I have also discussed more conservative treatment options such as intravenous hydration, caffeine and non-prescription analgesics. The patient/family/POA, understand(s) and wish(es) to proceed with epidural autologous blood patch as treatment for the patient's post-dural puncture headache. Time-Out: A pre-procedural Time-Out was completed immediately before starting the procedure and confirmed: Patient Identification, Site, Procedure, Patient Position and the Availability of Requisite Equipment. Clinical Indications: post dural puncture headache Epidural Insertion Note Patient position: sitting Skin prep: chlorhexidine Needle: 18 gauge Tuohy-Schliff Technique: loss of resistance Skin anesthesia: lidocaine 1% Observations: pain (L lower extremity pain after 3cc blood injected, no pain after injection stopped) Complications: none
--- NOTE | 2021-11-30 12:54 | PC.NURSE ---
1235 Dr. Gant, anesthesia, present . Discussed risks and benefits with patient. Patient signed consent for blood patch. Patch performed. pt laid supine and instructed to lay flat for 30 minutes . Will continue to assess.
--- NOTE | 2021-11-30 13:43 | PC.NURSE ---
Addendum entered by Payton Hennessy RN 11/30/21 13:45: Pt given standard blood patch instruction sheet included in blood patch packet, RN discussed this with her, she expresses understanding. Original Note: Pt remained flat while her mother packed car. Nurse placed in carseat and patient was taken to car in a wheelchair with an ice pack to place on lower back for discomfort.
[2021-12-02 07:15] LABS: Rapid Plasma Reagin Non-Reactive (NonReactive)
[2021-12-02 10:25] VITALS: BP 116/67; PULSE 90; RESP 20; TEMP 37.1; O2SAT 100
== END 2021-11-30 13:30 | disposition home or self-care (01) | DRG 807 ==
LOC: ANHLDR 22:09 → ANHOB2 11-29 07:16
PROVIDERS: Advanced Practice Midwife; Admitting Provider Obstetrics & Gynecology; PCP Family Medicine; Visit Provider Obstetrics & Gynecology
DX: O70.0 First degree perineal laceration during delivery (principal); Z37.0 Single live birth; Z3A.38 38 weeks gestation of pregnancy; O74.5 Spinal and epidural anesthesia-induced headache during labor and delivery
CPT/HCPCS: 36415; 85014; 85018; 85025; 86592; 86850; 86900; 86901; 88307; A9270; G0378; G0379; J0834; J2405; J2590; J2795; J7120

== ENCOUNTER 2021-12-04 12:17 | Observation (INO) | payer OTHER, MEDICAID, SELFPAY ==
--- NOTE | 2021-12-04 12:25 | PC.NURSE ---
Pt sent in by property site manager for possible blood patch. Pt states she delivered baby on Thursday11/29/2021. States she had a blood patch on Wednesday 11/29. States only received partial blood patch due to pain in leg. Pt states headache has persisted. No change in pain with position or lying down since last night. Aaron is rated as 6.
--- NOTE | 2021-12-04 12:30 | PC.NURSE ---
Notified Herminia Gonzales of admission and pt assessment. Will have anesthesia come to evaluate patient.
--- NOTE | 2021-12-04 12:40 | PC.NURSE ---
Dr. Parisi here to evaluate patient.
--- NOTE | 2021-12-04 13:00 | PC.NURSE ---
To room to give pt discharge instructions and pt is gone. Will contact patient per phone.
[2021-12-04 15:34] VITALS: BP 114/65; PULSE 84; RESP 18; TEMP 36.7
--- NOTE | 2021-12-04 15:35 | PC.NURSE ---
Spoke with pt regarding discharge instructions. Pt to call Dr. Parisi at numbers given if headache worsens. Pt to return or call Herminia Parekh CNM if any other concerns.
--- NOTE | 2021-12-06 07:48 | PM.OBTRLD ---
OB - Triage/Final Diagnosis Visit Information Date of evaluation: 12/04/21 Reason for evaluation: other (headache) Comments/Additional reasons for admission: I have assessed the risk for this patient, Debi Merrill, and determined that she would benefit from observation care.
== END 2021-12-04 13:00 | disposition home or self-care (01) ==
PROVIDERS: Admitting Provider Obstetrics & Gynecology; PCP Family Medicine; Visit Provider Obstetrics & Gynecology
DX: R51.9 Headache, unspecified (principal)
CPT/HCPCS: G0378; G0379

== ENCOUNTER 2024-12-28 12:36 | Outpatient (CLI) | payer MEDICAID, SELFPAY ==
--- NOTE | ~2024-12-28 | US_ITS ---
US breast LT limited INDICATION: Palpable left breast abnormality TECHNIQUE: Dedicated Limited left breast ultrasound COMPARISON: No prior studies for comparison. FINDINGS: The left breast is/are composed of normal heterogeneous echotexture without focal solid or cystic mass. IMPRESSION: 1: Normal left breast ultrasound. BI-RADS CATEGORY 1 - NEGATIVE Reviewed, dictated and finalized at location B.
--- OUTSIDE RECORDS SUMMARY | 2024-12-28 14:03 | XMS_ITS | Encounter Summary ---
Author Organization [facility] Address [facility] [place] [address] Care Team Providers Care Geometry Professor Name Role Phone Merry Augustine MD Primary Care Provider Reason for Referral * Imaging (Routine) - New Request Specialty Diagnoses / Procedures Referred By Farzana elizondo Referred To Contact RADIOLOGY Diagnoses Mass overlapping multiple quadrants of left breast Procedures [place] [address] [address] [phone] Phone: tel: fax: Referral ID Status Reason Start Date Expiration Date V isits Requested Visits Authorized New Request 12/28/2024 12/28/2025 1 1 * Consultation (Routine) - New Request Specialty Diagnoses / Procedures Referred By Contdavid t Referred To Contact DERMATOLOGY Diagnoses Pigmented skin lesion suspicious for malignant neoplasm Procedures OFFICE/OUTPATIENT NEW LOW MDM 30-44 MINUTES OFFICE/OUTPT VISIT,NEW,LEVL IV OFFICE/OUTPT VISIT,NEW,LEVL V OFFICE/OUTPT VISIT,EST,LEVL III OFFICE/OUTPT VISIT,EST,LEVL IV OFFICE/OUTPT VISIT,[place] [address] [place] [address] Phone: tel: fax: Referral ID Status Reason Start Date Expiration Date Visits Requested Visits Authorized New Request Specialty Services 12/28/2024 01/27/2026 1 1 Reason for Visit * Reason Comments Breast Problem Patient is here for lump on Lt Breast, and another lump above that is scabbed, excessive bleeding, appeared 1 mo ago, having pain for a couple months Encounter Details Date Type Department Care Team (Late st Contact Info) Description 12/28/2024 10:40 AM CDT Office Visit [facility] [address] [place] [address] [place] [address] [place] [address] Breast Problem ( Patient is here for lump on Lt Breast, and another lump above that is scabbed, excessive bleeding, appeared 1 mo ago, having pain for a couple months) Social History Tobacco Use Types Packs/Day Years Used Date Smoking Tobacco: Never Smokeless Tobacco: Never Tobacco Cessation:Counseling Given: Not Answered Alcohol Use Standard Drinks/Week Comments No 0 (1 standard drink = 0.6 oz pur e alcohol) AUDIT-C Answer Date Recorded Frequency of Alcohol Consumption Never 11/05/2018 Average Number of Drinks Not on file 019 Frequency of Binge Drinking Not on file 10/13 Comments No Sex and Gender Information Value Date Recorded Sex Assigned at Not on file Legal Sex Female 7:56 AM CDT Gender Identity Not on file Sexual Orientation Not on file documented as of this encounter Last Filed Vital Signs Vital Sign Reading Time Taken Comments Blood Pressure 110/66 12/28/2024 10:43 AM CDT Pulse 75 12/28/2024 10:43 AM CDT Temperature 37.1 C (98.7 F) 12/28/2024 10:43 AM CDT Respiratory Rate 17 12/28/2024 10:43 AM CDT Oxygen Saturation 97% 12/28/2024 10:43 AM CDT Inhaled Oxygen Concentration - - Weight 66.2 kg (146 lb) 12/28/2024 10:43 AM CDT Height 160 cm (5' 3 ) 12/28/2024 10:43 AM CDT Body Mass Index 25.86 12/28/2024 10:43 AM CDT documented in this encounter Patient Instructions * Attachments The following attachments cannot be sent through Care Everywhere. * Common breast problems ([place]) documented in this encounter Progress Notes * KIRIT Han - 12/28/2024 10:40 AM CDT Images from the original note were not included. _ Reason for Visit: Breast Problem ( Patient is here for lump on Lt Breast, and another lump above that is scabbed, excessive bleeding, appeared 1 mo ago, having pain for a couple months) History of Present Illness: BHAVIK Merrill is a 24-year-old female here for evaluation thru [facility] for evaluation of breast lump she recently found on left breast. She has family hx Breast ca She also has a skin lesion on her left upper chest for about a month that bleeds often and a lot when it bleeds. ROS: Review of Systems Feeling well. Denies unusual headaches, vision or hearing problems. No unusual recent colds or flus, denies symptoms suggestive of allergies. Denies unusual dysphagia, heartburn or indigestion. No unusual dyspnea or chest pain on exertion. No unusual nausea, abdominal pain, change in bowel habits, black or bloody stools. No unusual muscle or joint aches or pains. No unusual foot or leg edema. No unusual numbness, tingling,or weakness. No unusual anxiety or depressive symptoms, Sleeping well. Nosignificant weight gain or loss. No unusual fatigue. Medications: No outpatient medications have been marked as taking for the 12/28/24 encounter (Office Visit) with KIRIT Han. Review of patient's allergies indicates: No Known Allergies Past Medical History: Diagnosis Date Dysmenorrhea 01/26/2014 Date Onset: 01/26/2014 Menorrhagia 01/26/2014 Date Onset: 01/26/2014 History reviewed. No pertinent surgical history. Social History Tobacco Use Smoking status: Never Smokeless tobacco: Never Vaping Use Vaping status: Never Used Substance Use Topics Alcohol use: No Drug use: No Family History Problem Relation Name Age of Onset Hypertension Maternal Grandfather Diabetes Paternal Grandmother Family Status Relation Name Status MGF (Not Specified) PGM (Not Specified) No partnership data on file Physical Exam Constitutional: Patient is oriented to person, place, and time. Patient appears well-developed and well-nourished. Head: Normocephalic. Eyes: Pupils are equal, round, and reactive to light. Neck: No JVD present. No thyromegaly present. Breast exam-Right Breast nl no mass. Left breast at 9 ock position has a spongy 1.5 cm lobular mass. Left upper chest reveals 5 mm red raised lesion. Ange Escobar MA witnessed Cardiovascular: Normal rate, regular rhythm, normal heart sounds and intact distal pulses. No murmur heard. Pulmonary/Chest: No respiratory distress. Patient has no wheezes. Patient has no rales. Patient exhibits no tenderness. Abdominal: Patient exhibits no distension and no mass. There is no suprapubic tenderness. There is no rebound and no guarding. Musculoskeletal: Normal range of motion. Patient exhibits no edema, tenderness or deformity. Lymphadenopathy: Patient has no cervical adenopathy. Neurological: Patient is alert and oriented to person, place, and time. Skin: No rash noted. No erythema. Psychiatric: Patient has a normal mood and affect. The behavior is normal. Thought content normal. No data to display Vitals: 12/28/24 1043 BP: 110/66 Pulse: 75 Body mass index is 25.86 kg/m??. Assessment and Plan Encounter Diagnose(s) ICD-10-CM SNOMED CT(R) 1. Pigmented skin lesion suspicious for malignant neoplasm L81.9 SUSPECTED MALIGNANT PIGMENTED SKINLESION Ambulatory referral to Dermatology 2. Mass overlapping multiple quadrants of left breast N63.25 BREAST LUMP MG DIAGNOSTIC LT DIGI US BREAST LT [employer] We discussed destruction of skin lesion verses removal or derm referral. Patient opted to have dermreferral. In my opinion the two issues are unrelated Orders Placed This Encounter Ambulatory referral to Dermatology MG DIAGNOSTIC LT DIGI US BREAST LT [employer] If symptoms do not improve to utilize the emergency room, call their PCP, or follow back up with the walk-in clinic. If patient needs any additional time off not discussed at this office visit they will need to contact the PCP or be seen in the walk in clinic. Patient should follow annual wellness exams recommended for age and sex of patient. Items to consider but not limited included yearly annual fasting labs, colonscopy or cologuard when indicated. PSA and prostate for males. Mammogram and female exam for females, Portions of this note were dictated using [email or web address] speech recognition software. Occasional wrong wordor sound-alike substitutions may have occurred due to the inherent limitations of voice recognition software. Please read the chart carefully and recognize, using context, where the substitutions may have occurred. Ania Sandhu PA-C evaluated and Dr. Reema Fajardo reviewed and agrees with plan. documented in this encounter Plan of Treatment Scheduled Orders Name Type Priority Associated Diagnoses Orde r Schedule MG DIAGNOSTIC LT DIGI MAMMO Routine Mass overlapping multiple quadrants of left breast Expected: 12/28/2024, Expires: 02/27/2026 US BREAST LT [facility] Ultrasound Routine Mass overlapping multiple quadrants of left breast Expected: 12/28/2024, Expires: 12/28/2025 Scheduled Referrals Name Type Priority Associated Diagnoses Orde r Schedule Ambulatory referral to Dermatology Referral Routine Pigmented skin lesion suspicious for malignant neoplasm Ordered: 12/28/2024 documented as of this encounter Visit Diagnoses Diagnosis Pigmented skin lesion suspicious for malignant neoplasm- Primary Mass overlapping multiple quadrants of left breast documented in this encounter Care Teams Geometry Professor Relationship Specialty Start Date End Date Merry Augustine MD [address] [place] [address] PCP - General FAMILY PRACTICE 04/03/21 documented as of this encounter
--- OUTSIDE RECORDS SUMMARY | 2024-12-28 14:03 | XMS_ITS | Clinical Summary ---
Author Organization [facility] Address [address] [place] [address] Care Team Providers Care Overlay Plastician Name Role Phone Merry Augustine MD Primary Care Provider [phone] Source Comments [facility],non-owned Affiliates and Associated Physician Practices is amultiple site organization consisting of ambulatory clinics and hospital sitesin [place], [place], [place] and [place]. This disclosure is being madepursuant to the Care Everywhere program and may not contain all information available regarding this patient. Last updated 18.[employer] [facility] Allergies No known active allergies Medications * Be aware that medications may not be up to date on this document. Alwaysverify current medications with the patient. Medication Sig Dispensed Refills Start Date End Date Status amitriptyline (ELAVIL) 10 MG tabletIndications: Severe Anxiety Take 1 (one) tablet by mouth at bedtime Reasons: Severe Feeling of Anxiety 30 tablet 1 01/24/2021 Active Additional Information Patient not taking.Reported on 06/05/2021 Vit-Fe Fumarate-FA ( VITAMIN) 28-0.8 MG tabletIndications: Take 1 tablet by mouth once daily Reasons: Active pyridoxine (VITAMIN B-6) 25 MG tabletIndications: Nausea and/or Vomiting in Take 50 mg by mouth once daily Reasons: Nausea and Vomiting in Active doxylamine (UNISOM) 25 MG tabletIndications: Nausea and/or Vomiting in Take 1 (one) tablet by mouth at bedtime Reasons: Nausea and Vomiting in 60 Each 11 05/01/2021 Active Additional Information Patient not taking.Reported on 06/05/2021 magnesium oxide (MAG-OX) 400 MG tabletIndications: Prevention of Headaches Take 1 (one) tablet by mouth once daily Reasons: Headache Prophylaxis 30 tablet 11 05/01/2021 Active Additional Information Patient not taking.Reported on 06/05/2021 ondansetron, disintegrating, (ZOFRAN ODT) 4 MG tabletIndications: Nausea and/or Vomiting in Take 4 mg by mouth every 6 hours as needed for Nausea/Vomiting Allow tablet to dissolve on the tongue Reasons: Nausea and Vomiting in Active hydrOXYzine hcl (ATARAX) 25 MG tabletIndications: Anxiety Take 1 (one) tablet by mouth once daily as needed (anxiety) Reasons: Feeling Anxious 30 tablet 5 06/05/2021 Active Additional Information Patient not taking.Reported on 07/29/2021 polyethylene glycol 3350 (MIRALAX) 17 GM/SCOOP powderIndications: Constipation Take 17 (seventeen) g by mouth once daily Reasons: Constipation 238 g 5 06/05/2021 Active Additional Information Patient not taking.Reported on 06/06/2021 Vit-Fe Fumarate-FA ( 1 PLUS 1 PO) PNV-DHA 27 mg iron-1 mg-300 mg capsule Take 1 pill by mouth daily Active vitamin D3 (CHOLECALCIFEROL) 25 MCG (1000 UNITS) tabletIndications: Vitamin D Deficiency Take 1 (one) tablet by mouth once daily Reasons: Vitamin D Deficiency 90 tablet 11 07/03/2021 Active scopolamine (TRANSDERM-SCOP) 1 MG patchIndications:D izziness Apply 1 (one) patch to skin every 72 hours as needed for Nausea/Vomiting or Dizziness Reasons: Dizzy 10 patch 1 07/03/2021 Active Additional Information Patient not taking.Reported on 07/29/2021 Active Problems Problem Noted Date Diagnosed Date labor in third trimester 10/25/2021 Low-lying placenta 09/27/2021 29 weeks gestation of 09/23/2021 Pelvic pressure in 08/28/2021 Twin with single i ntrauterine , unspecified trimester, fetus 2 07/03/2021 Overview (07/03/2021): Spontaneous interruption of cardiac activity for Twin B between 8-11 wks gestation IUGR (intrauterine growth re striction) in prior , 05/01/2021 Assessment & Plan (07/31/2021 1:01 PM CDT): At risk for recurrent FGR or other forms of ischemic placental disease. AGA growth today per preliminary report. Recommendations 1. Recommended consistency with Aspirin therapy 2. Serial growth every 4-8 wks Assessment & Plan (07/03/2021 1:09 PM CDT): At risk for recurrent FGR or other forms of ischemic placental disease. Recommendations 1. Aspirin starting at 12 weeks gestation [162 mg daily]--reminded to start aspirin today 2. Serial growth every 4-8 wks Assessment & Plan (05/01/2021 11:55 AM CDT): At risk for recurrent FGR or other forms of ischemic placental disease. Recommendations 1. 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 Uncertain chorionicity. Discordant gestational sac size. I discussed the uncertainty of chorionicity today--we will review chorionicity specific risks at a later consult. We discussed the potential risks of a multi- gestation. Twin pregnancies have higher rates of all complications with the exception of macrosomia and postdates. The most serious complications are as follows: - labor and delivery, which occurs in half of the twin pregnancies before 37 weeks and 11% of those before 32 weeks. This may also be secondary to PPROM. - Gestational hypertension (13%) and preeclampsia (10-15%) are more common in twin gestations as compared to morales pregnancies. - Low weight / IUGR fetuses - Gestational diabetes (GDM) - Higher risk of congenital anomalies - Higher risk for dermatological related disorders of (cholestasis and PUPPS) - Higher risk for iron deficiency anemia - Higher risk for placental abruption (3-fold increase) - Increased risk for loss - Increased risk for malpresentation - venous thromboembolism Recommendations 1. Reevaluate chorionicity at 10 wks 2. 1TM anatomy survey at 13 wks 3. Detailed anatomy at 20-22 wks with CL Conversion disorder with attacks or seizures Back pain 10/12/2014 Overview (07/03/2021): regular back pain. Denies any history of accidents. Assessment & Plan (07/31/2021 12:59 PM CDT): Chronic but exacerbated by . Lost PT referral with added sciatica. Recommendations 1. Physical Therapy--referral provided today 2. Medicated heat strip and maternity belt 3. Alert Preschool Program Director of any falls Assessment & Plan (07/03/2021 1:12 PM CDT): Chronic but exacerbated by Recommendations 1. Physical Therapy--reports that her Dual Rate Supervisor is sending the referral 2. Medicated heat strip and maternity belt Heart murmur 10/12/2004 Overview (08/05/2021): Still has a murmur. Being evaluated by primary. Unsure if she has ever had a hole in the heart. Believes that she had abnormal rhythm in the past. Summary: The transthoracic echocardiogram is normal by two-dimensional, color flow imaging, and Doppler interrogation. Findings: Left ventricular systolic function is normal with an ejection fraction by Biplane Method of Discs of 57 %. The left ventricle is normal size. There is no left ventricular hypertrophy. Left ventricular segmental wall motion is normal. The left ventricular diastolic function is normal, consistent with normal left ventricle filling pressures. Right Ventricle The right ventricular cavity size is normal. Normal right ventricular systolic function. Assessment & Plan (07/31/2021 12:58 PM CDT): Was evaluated by Cardiology. Suspected to have vasovagal episodes. Echocardiogram not available for review. Recommendations 1. Please forward final impression from [employer], including the echocardiogram and Holter monitor results. 2. Maintain follow up with Cardiology 3. Seek evaluation with any further syncopal episodes, chest pain, persistent palpitations. 4. Encouraged adequate hydration and nutrition. Assessment & Plan (07/03/2021 1:11 PM CDT): Was evaluated by Cardiology. Suspected to have vasovagal episodes. Recommendations 1. Please forward final impression from [employer], including the echocardiogram and Holter monitor results 2. Maintain follow up with Cardiology Pseudoseizures Overview (01/11/2023): Has had MRI and EEG. No medications. 04/03/21 48 hr holter monitor results: Normal (in Care everywhere). Vitamin D level: 24 Regulatory Import 01/10/23 Assessment & Plan (07/31/2021 12:56 PM CDT): Previously recommended to start Cognitive Behavioral Therapy [CBT]. Does not have a counselor-- [facility] working to assist with referral. Not on any anticonvulsant therapy. No recent event, Recommendations 1. Start Cognitive Behavioral Therapy [CBT] as soon as available from [facility]. 2. Follow up with neurology as recommended. Assessment & Plan (07/03/2021 1:09 PM CDT): Previously recommended to start Cognitive Behavioral Therapy [CBT]. Does not have a counselor. Not on any anticonvulsant therapy. Recommendations 1. Referral for mental health counseling--given information again today 2. Start Cognitive Behavioral Therapy [CBT] Assessment & Plan (05/01/2021 11:55 AM CDT): Previously recommended to start Cognitive Behavioral Therapy [CBT]. Does not have a counselor. I emphasized the importance of a counselor in the management. Not on any anticonvulsant therapy. Recommendations 1. Referral for mental health counseling 2. Start Cognitive Behavioral Therapy [CBT] Vertigo Assessment & Plan (07/03/2021 1:15 PM CDT): Recommendations 1. Gave some instructions 2. prescribed a scopolamine patch that she may use to help with dizziness 3. Encouraged her to talk with her Dual Rate Supervisor about remedies Resolved Problems Problem Noted Date Diagnosed Date Resolved Date 05/31/2021 07/03/2021 Seizures 01/20/2021 05/01/2021 Overview (04/30/2021): No Neurologist. PCP only. No medications for seizures. Last seizure several weeks ago. Dysmenorrhea 01/26/2014 07/03/2021 Overview (06/06/2021): Date Onset: 01/26/2014 Immunizations Name Administration Dates Next Due DTAP/IPV 01/13/2003 DTaP VACCINE IM (6wk-6yrs) 01/13/2003,,05/06/1999,03/05,01/02/1999 HEP A PED/ADULT VACCINE 06/03/2011 HEP A PEDS 2 DOSE 05/23/2013 HEP B VACCINE 02/04/2000,03/05/1999,01/02/1999 HIB Hep B 02/04/2000,03/05/1999,01/02/1999 HIB VACCINE 02/04/2000,03/05/1999,01/02/1999 HPV VACCINE 05/25/2014 Human Papilloma Virus Eusebio valent Vaccine 05/23/2013,06/03/2011 INFLUENZA VACCINE 08/15/2008 MENINGOCOCCAL MCV4 05/25/2014,05/23/2013 MMR 01/13/2003,11/05/1999 MMR/VARICELLA 01/13/2003,11/05/1999 POLIO IPV 01/13/2003 POLIO OPV 11/05/1999,03/05/1999,01/02/1999 TDAP (7yrs+) 06/03/2011 VARICELLA 05/25/2014,11/05/1999 Family History Medical History Relation Name Comments Anxiety Disorder Maternal Grandmother Other - Cardiac Maternal Uncle hole in th e heart Multiple Sclerosis Paternal Aunt Relation Name Status Comments Brother Alive Father Alive Maternal Grandfather Alive Maternal Grandmother Alive Maternal Uncle Mother Alive Paternal Aunt Paternal Grandfather Alive Paternal Grandmother Alive Sister Alive Social History Tobacco Use Types Packs/Day Years Used Date Smoking Tobacco: Never Smokeless Tobacco: Never Tobacco Cessation:Counseling Given: No Alcohol Use Standard Drinks/Week Comments Never 0 (1 standard drink = 0.6 oz pur e alcohol) AUDIT-C Answer Date Recorded Q1: How often do you have a drink containing alc ohol? Never 01/20/2021 Average Number of Drinks Not on file 021 Frequency of Binge Drinking Not on file 01/10 Sex and Gender Information Value Date Recorded Sex Assigned at Not on file Gender Identity Not on file Sexual Orientation Not on file Last Filed Vital Signs Vital Sign Reading Time Taken Comments Blood Pressure 117/68 10/26/2021 9:59 AM TERRAZZ[employer] WORKER Pulse 106 08/28/2021 1:16 PM [employer] WORKER Temperature 36.5 C (97.7 F) 10/26/2021 9:59 AM [employer] WORKER Respiratory Rate 16 10/26/2021 9:59 AM [employer]ZZ[employer] WORKER Oxygen Saturation 98% 10/26/2021 9:59 AM [employer]ZZO WORKER Inhaled Oxygen Concentration - - Weight 71.5 kg (157 lb 9.6 oz) 10/24/2021 4:45 P M [employer] WORKER Height 160 cm (5' 3 ) 10/24/2021 4:45 PM [employer] WORKER Body Mass Index 27.92 10/24/2021 4:45 PM TER[employer]ZZ[employer] WORKER Plan of Treatment Health Maintenance Due Date Last Done Comments HEPATITIS C SCREENING 10/29/2016 DTAP/TDAP/TD VACCINES (7 - Td or Tdap) 06/03/2021 06/03/2011, 01/13/2003, 01/13/2003, Additional history exists CHLAMYDIA/GONORRHEA SCREENING 10/24/2022 10/24/2021, 04/23/2021, 04/23/2021, Additional history exists PAP SMEAR 04/23/2024 04/23/2021 COVID-19 VACCINE ( season) 2024 INFLUENZA VACCINE (#1) 2024 08/15/2008 DEPRESSION SCREENING 10/12/2024 ZOSTER VACCINE (1 of 2) 2048 HEPATITIS B VACCINE Completed 02/04/2000, 02/04/2000, 03/05/1999, Additional history exists HIB VACCINE Completed 02/04/2000, 01/11, 03/05/1999, Additional history exists HPV VACCINE Completed 05/25/2014, 05/12, 06/03/2011 MENINGOCOCCAL GROUPS A/C/Y/W VACCINE Aged Out 05/25/2014, 05/23/2013 No longer eligibl e based on patient's age to complete this topic HIV SCREENING Completed 09/27/2021, 05/31/2021 MENINGOCOCCAL (Group B) VACCINE SHARED DECISION-MAKING Aged Out No longer eligible based on patient's age to complete this topic PNEUMOCOCCAL VACCINE Aged Out No long er eligible based on patient's age to complete this topic Procedures Procedure Name Priority Date/Time Associated Diagnosis Comments CHLAMYDIA + GC AMPLIFIED PROBE STAT 10/24/2021 7:39 PM [employer] WORKER from Last 3 Months or Most Recently Relevant to Health Maintenance Results * CHLAMYDIA + GC AMPLIFIED PROBE (STL) (10/24/2021 7:39 PM TERRAZZO WORKER) Chlamydia Amplified Probe Negative Negative 10/25/2021 7:06 PM TERRAZZO WORKER [facility] GC Amplified Probe Negative Negative 10/25/2021 7:06 PM TERRAZZO WORKER [facility] Microbiology ENTIRE ENDOCERVIX / Unknown Collection / Unknown 10/24/2021 7:39 PM TERRAZZ[employer] WORKER 10/24/2021 7:51 PM [employer]RAZZ[employer] WORKER Narrative [facility] - 10/25/2021 7:06 PM [employer] WORKER Results based on detection/no detection of ribosomal RNA by amplified method. Valeria Lezama MD LAB - MICROBIOLOGY ORDERABLES [facility] [address] [place], [place] [id number] [place] [address] from Last 3 Months or Most Recently Relevant to Health Maintenance Advance Directives * Full Code (Latest Code Status on File) Date Activated Date Inactivated Comments 10/24/2021 6:25 PM 10/26/2021 3:19 PM * Full Code Date Activated Date Inactivated Comments 01/20/2021 7:39 AM 01/24/2021 6:33 PM Care Teams Overlay Plastician Relationship Specialty Start Date End Date Merry Augustine MD [address] [place] [address] PCP - General Family Medicine 01/21/21
--- OUTSIDE RECORDS SUMMARY | 2024-12-28 14:03 | XMS_ITS | Data Portability ---
Author Organization [facility] Address [address] [place] [address] Care Team Providers Care Butcher Or Smallgoods Maker Name Role Phone KEKE TORRES Primary Care Provider Assessment No assessment recorded. Plan of Treatment Reminders Order Date Submit Date Provider Last Modified By Organization Details Last Modified Time Details Appointments None recorded. Lab None recorded. Referral None recorded. Procedures None recorded. Surgeries None recorded. Imaging None recorded. Medication Orders cyanocobala min (vit B-12) 1,000 mcg/mL injection solution 2024 025 [email or web address] 1 Not available 12:07:44 cyanocobala min (vit B-12) 1,000 mcg/mL injection solution 2023 024 [email or web address] 1 Not available 5 12:07:44 cyanocobala min (vit B-12) 1,000 mcg/mL injection solution 2023 024 [email or web address] 1 Not available 5 12:07:44 cyanocobala min (vit B-12) 1,000 mcg/mL injection solution 2023 024 [email or web address] 1 Not available 12:07:44 Patient TargetsNo targets recorded. Patient InstructionsNo instructions recorded. Reason for Referral None Reported. Results Created Date Observation Date Name Description Value Unit Range Abnormal Flag Note LastModifiedBy Organization Detail LastModifiedTime 08/12/20 24 08/12/2024 CMP(C OMPRE HENSI VE METAB OLIC PANEL ) sodium 139 mmol/ L 133-14 6 Not Available [facility] (Lab) [address], [place], [address], 08/13/2024 05:35:27 08/12/20 24 08/12/2024 CMP(C OMPRE HENSI VE METAB OLIC PANEL ) potassium 3.8 mmol/ L 3.5-5. 1 Not Available [facility] (Lab) [address], [place], [address], 08/13/2024 05:35:27 08/12/20 24 08/12/2024 CMP(C OMPRE HENSI VE METAB OLIC PANEL ) chloride 104 mmol/ L 98-107 Not Available [facility] (Lab) [address], [place], [address], 08/13/2024 05:35:27 08/12/20 24 08/12/2024 CMP(C OMPRE HENSI VE METAB OLIC PANEL ) carbon dioxide 28 mmol/ L 21-31 Not Available [facility] (Lab) [address], [place], [address], 08/13/2024 05:35:27 08/12/20 24 08/12/2024 CMP(C OMPRE HENSI VE METAB OLIC PANEL ) anion gap 7 mmol/ L 4-13 Not Available [facility] (Lab) [address], [place], [address], 08/13/2024 05:35:27 08/12/20 24 08/12/2024 CMP(C OMPRE HENSI VE METAB OLIC PANEL ) blood urea nitrogen 10 mg/dL 7-25 Not Available [facility] (Lab) [address] [place], [address], 08/13/2024 05:35:27 08/12/20 24 08/12/2024 CMP(C OMPRE HENSI VE METAB OLIC PANEL ) creatinine 0.71 mg/dL 0.60-1 .30 Not Available [facility] (Lab) [address] [place], [address], 08/13/2024 05:35:27 08/12/20 24 08/12/2024 CMP(C OMPRE HENSI VE METAB OLIC PANEL ) egfrcr (CKD-epi 2020) >90 mL/mi n/1.7 3_m2 >=60 Not Available [facility] (Lab) [address], [place], [address], 08/13/2024 05:35:27 08/12/20 24 08/12/2024 CMP(C OMPRE HENSI VE METAB OLIC PANEL ) calcium 9.0 mg/dL 8.3-10 .5 Not Available [facility] (Lab) [address], [place], [address], 08/13/2024 05:35:27 08/12/20 24 08/12/2024 CMP(C OMPRE HENSI VE METAB OLIC PANEL ) glucose 56 mg/dL 70-100 low Not Available [facility] (Lab) [address], [place], [address], 08/13/2024 05:35:27 08/12/20 24 08/12/2024 CMP(C OMPRE HENSI VE METAB OLIC PANEL ) protein, total 7.0 g/dL 6.4-8. 3 Not Available [facility] (Lab) [address], [place], [address], 08/13/2024 05:35:27 08/12/20 24 08/12/2024 CMP(C OMPRE HENSI VE METAB OLIC PANEL ) albumin 4.7 g/dL 3.5-5. 0 Not Available [facility] (Lab) [address] [place], [address], 08/13/2024 05:35:27 08/12/20 24 08/12/2024 CMP(C OMPRE HENSI VE METAB OLIC PANEL ) ALT 11 units /L 9-43 Not Available [facility] (Lab) [address], [place], [address], 08/13/2024 05:35:27 08/12/20 24 08/12/2024 CMP(C OMPRE HENSI VE METAB OLIC PANEL ) alkaline phosphatase 59 units /L 34-104 Not Available [facility] (Lab) [address], [place], [address], 08/13/2024 05:35:27 08/12/20 24 08/12/2024 CMP(C OMPRE HENSI VE METAB OLIC PANEL ) AST 13 units /L 13-39 Not Available [facility] (Lab) [address], [place], [address], 08/13/2024 05:35:27 08/12/20 24 08/12/2024 CMP(C OMPRE HENSI VE METAB OLIC PANEL ) bilirubin, total 1.4 mg/dL 0.2-1. 2 high Not Available [facility] (Lab) [address], [place], [address], 08/13/2024 05:35:27 08/12/20 24 08/12/2024 TSH, REFLE X FREE T4 TSH 1.07 uIU/m L 0.30-5 .33 Not Available [facility] (Lab) [address], [place], [address], 08/13/2024 05:35:27 08/12/20 24 08/12/2024 CBC W/DIF F WBC 8.6 10'3/ uL 3.5-10 .5 Not Available [facility] (Lab) [address], [place], [address], 08/13/2024 05:35:28 08/12/20 24 08/12/2024 CBC W/DIF F RBC 4.54 10'6/ uL (based on docume nted legal sex) 3.80-5 .20 Not Available [facility] (Lab) [address], [place], [address], 08/13/2024 05:35:28 08/12/20 24 08/12/2024 CBC W/DIF F HGB 13.7 g/dL (based on docume nted legal sex) 11.6-1 5.4 Not Available [facility] (Lab) [address], [place], [address], 08/13/2024 05:35:28 08/12/20 24 08/12/2024 CBC W/DIF F HCT 41.9 % (based on docume nted legal sex) 34.0-4 5.0 Not Available [facility] (Lab) [address], [place], [address], 08/13/2024 05:35:28 08/12/20 24 08/12/2024 CBC W/DIF F MCV 92.3 fL 80.0-9 9.0 Not Available [facility] (Lab) [address], [place], [address], 08/13/2024 05:35:28 08/12/20 24 08/12/2024 CBC W/DIF F MCH 30.2 pg 27.0-3 4.0 Not Available [facility] (Lab) [address], [place], [address], 08/13/2024 05:35:28 08/12/20 24 08/12/2024 CBC W/DIF F MCHC 32.7 g/dL 32.0-3 5.5 Not Available [facility] (Lab) [address], [place], [address], 08/13/2024 05:35:28 08/12/20 24 08/12/2024 CBC W/DIF F RDW 12.4 % 11.0-1 5.0 Not Available [facility] (Lab) [address], [place], [address], 08/13/2024 05:35:28 08/12/20 24 08/12/2024 CBC W/DIF F plt 281 10'3/ uL 150-40 0 Not Available [facility] (Lab) [address], [place], [address], 08/13/2024 05:35:28 08/12/20 24 08/12/2024 CBC W/DIF F MPV 10.0 fL 8.8-12 .1 Not Available [facility] (Lab) [address], [place], [address], 08/13/2024 05:35:28 08/12/20 24 08/12/2024 CBC W/DIF F NRBC's 0.0 % 0.0 Not Available [facility] (Lab) [address], [place], [address], 08/13/2024 05:35:28 08/12/20 24 08/12/2024 CBC W/DIF F absolute NRBCs 0.0 10'3/ uL no refere nce range establ ished Not Available [facility] (Lab) [address], [place], [address], 08/13/2024 05:35:28 08/12/20 24 08/12/2024 CBC W/DIF F neutrophils 44.8 % 34.0-7 3.0 Not Available [facility] (Lab) [address], [place], [address], 08/13/2024 05:35:28 08/12/20 24 08/12/2024 CBC W/DIF F lymphocytes 43.5 % 15.0-5 0.0 Not Available [facility] (Lab) [address], [place], [address], 08/13/2024 05:35:28 08/12/20 24 08/12/2024 CBC W/DIF F monocytes 7.5 % 1.0-15 .0 Not Available [facility] (Lab) [address], [place], [address], 08/13/2024 05:35:28 08/12/20 24 08/12/2024 CBC W/DIF F eosinophils 3.4 % 0.0-8. 0 Not Available [facility] (Lab) [address], [place], [address], 08/13/2024 05:35:28 08/12/20 24 08/12/2024 CBC W/DIF F basophils 0.6 % 0.0-2. 0 Not Available [facility] (Lab) [address], [place], [address], 08/13/2024 05:35:28 08/12/20 24 08/12/2024 CBC W/DIF F immature granulocytes 0.2 % no define d refere nce range Not Available [facility] (Lab) [address], [place], [address], 08/13/2024 05:35:28 08/12/20 24 08/12/2024 CBC W/DIF F absolute neutrophils 3.9 10'3/ uL 1.5-8. 0 Not Available [facility] (Lab) [address], [place], [address], 08/13/2024 05:35:28 08/12/20 24 08/12/2024 CBC W/DIF F absolute lymphocytes 3.7 10'3/ uL 1.0-4. 0 Not Available [facility] (Lab) [address], [place], [address], 08/13/2024 05:35:28 08/12/20 24 08/12/2024 CBC W/DIF F absolute monocytes 0.6 10'3/ uL 0.2-1. 0 Not Available [facility] (Lab) [address], [place], [address], 08/13/2024 05:35:28 08/12/20 24 08/12/2024 CBC W/DIF F absolute eosinophils 0.3 10'3/ uL 0.0-0. 6 Not Available [facility] (Lab) [address], [place], [address], 08/13/2024 05:35:28 08/12/20 24 08/12/2024 CBC W/DIF F absolute basophils 0.1 10'3/ uL 0.0-0. 3 Not Available [facility] (Lab) [address], [place], [address], 08/13/2024 05:35:28 08/12/20 24 08/12/2024 CBC W/DIF F absolute immature granulocytes 0.0 10'3/ uL 0.00-0 .10 2023 4:18 AM: P indic ates parti al resul ts on a panel have been relea sed. Addit ional resul ts will follo w. 2023 4:18 AM: This resul t has been final verif ied. No addit ional or landeros ed resul ts are expec beatrice. Not Available [facility] (Lab) [address], [place], [address], 08/13/2024 05:35:28 08/12/20 24 08/12/2024 VITAM IN B12 / FOLAT E PANEL vitamin B12 307 pg/mL 180-91 4 Mar l Range : 180-9 14 pg/mL . Indet ermin ate Range : 145-1 80 pg/mL . Defic ient Range : <=145 pg/mL . Not Available [facility] (Lab) [address], [place], [address], 08/13/2024 05:35:28 08/12/20 24 08/12/2024 VITAM IN B12 / FOLAT E PANEL folate, serum 8.1 NG/mL 6.0-20 .0 Not Available [facility] (Lab) [address], [place], [address], 08/13/2024 05:35:28 08/12/20 24 08/12/2024 VITAM IN D, 25-OH (TOTA L D2/D3 ) vitamin D, 25-hydroxy, total 20.3 NG/mL 30.0-1 00.0 low [place] stive of Defic iency : <20 ng/mL [place] stive of Insuf ficie ncy: 20-29 ng/mL Sug[place] stive of Suffi cienc y: 30-10 0 ng/mL Sugge stive of Toxic ity: >150 ng/mL Not Available [facility] (Lab) [address], [place], [address], 08/13/2024 05:35:28 08/12/20 24 08/17/2024 BIOPS Y, ENDOC ERVIC AL endocervical curettage histology Negati ve normal Not Available [facility] ([facility]) [address], [place], [address], 08/17/2024 13:50:20 08/12/20 24 08/17/2024 BIOPS Y, ENDOC ERVIC AL results GROSS ING INFOR MATIO N: (B1) ENDOC ERVIX Recei mariah in forma amy on a cyto brush is a 0.5 [address] of mucus and red brown mater ial. Speci men is filte red and total ly submi tted. B1 DIAGN OSIS: (B1) ENDOC ERVIX Benig n ectoc ervic al and endoc ervic al tissu e. No intra epith elial lesio n. UNSP ABNOR MAL CYTOL OG FINDI NGS IN SPECM N FROM CERVI X UTERI (R87. 619) Not Available [facility] ([facility]) [address], [place], [address], 08/17/2024 13:50:20 08/11/2008/11/2024 , anna gipson No observ ation record ed. HAYDEE [facility] [address], [place], [address], 08/11/2024 19:09:21 Result Notes None recorded. Problems Name Problem SNOMED Code Status Onset Date Resolution Date Notes Provider Name and Address Organization Details Recorded Time finding Completed 201804/23/2021 Matern care for oth or susp poor fetl grth, third tri, unsp;Rec orded Elsewher e: No Locat ion: Caleb begum [facility] S ource: EHR Slot Router jenny: N Matildati ce ID: 0001 Levon lable Time: 01:00:00 PM Violette Wynn [facility], [facility] 11:54:38 Single live [id number] Completed 201804/23/2021 Single live ;Re corded Elsewher e: No [facility] Slot Router jenny: N Matildati ce ID: 0001 Levon lable Time: 01:00:00 PM Violette Wynn [facility], [facility] 11:55:10 Gestatio n period, 36 weeks [id number] Completed 201804/23/2021 36 weeks gestatio n of pregnanc y;Record ed Elsewher e: No [facility]: EHR Slot Router jenny: N Matildati ce ID: 0001 Levon lable Time: 01:00:00 PM Violette Wynn [facility], [facility] 11:54:50 Pregnanc y, childbir th and puerperi um finding Completed 201804/23/2021 Encntr for suprvsn of normal first preg, third trimeste r;Record ed Elsewher e: No [facility]: EHR Slot Router jenny: N Matildati ce ID: 0001 Levon lable Time: 01:45:00 PM Violette Wynn trini, [facility] 11:55:07 Disorder of intraute rine contrace ptive device Completed 201804/23/2021 [facility] compl of intraute rine contrace ptive device, init encntr;R ecorded Elsewher e: No [facility]: EHR Slot Router jenny: N Matildati ce ID: 0001 Levon lable Time: 12:45:00 PM Violette Wynn trini, [facility] 11:54:30 Gestatio n period, 28 weeks [id number] Completed 201804/23/2021 28 weeks gestatio n of pregnanc y;Record ed Elsewher e: No [facility] S ource: EHR Slot Router jenny: N Matildati ce ID: 0001 Levon lable Time: 01:00:00 PM Violette feliz, [facility] 11:54:45 Uterine size for dates discrepa ncy Completed 201804/23/2021 Uterine size-darrel e discrepa ncy, third trimeste r;Record ed Elsewher e: No Locat ion: [facility] S ource: EHR Slot Router jenny: N Matildati ce ID: 0001 Levon lable Time: 03:15:00 PM Violette Wynn [facility], [facility] 11:55:18 Blood leukocyt e number above referenc e range [id number] Completed 201904/23/2021 Elevated white blood cell count, unspecif ied;Rasheed rded Elsewher e: No [facility] S ource: EHR Slot Router jenny: N Matildati ce ID: 0001 Levon lable Time: 11:30:00 AM Violette feliz [facility] 11:54:57 Gestatio n period, 8 weeks [id number] Completed 201704/23/2021 8 weeks gestatio n of pregnanc y;Record ed Elsewher e: No [facility]: EHR Slot Router jenny: N Matildati ce ID: 0001 Levon lable Time: 02:00:00 PM Violette feliz [facility] 11:54:55 Gestatio n period, 37 weeks [id number] Completed 201804/23/2021 37 weeks gestatio n of pregnanc y;Record ed Elsewher e: No [facility]: [facility] Slot Router jenny: N Matildati ce ID: 0001 Levon lable Time: 01:30:00 PM Violette Ortiztz trini, [facility] 11:54:52 Clinical finding Completed 201804/23/2021 Presence of (intraut erine) contrace ptive device;R ecorded Elsewher e: No Locat ion: [facility] S ource: EHR Slot Router jenny: N Matildati ce ID: 0001 Levon lable Time: 02:00:00 PM Violette Tianna trini, [facility] 11:54:28 Bleeding [id number] Completed 201904/23/2021 Abnormal uterine bleeding ;Recorde d Elsewher e: No Locat ion: [facility] S ource: EHR Slot Router jenny: N Matildati ce ID: 0001 Levon lable Time: 11:30:00 AM Violette Wynn trini, [facility] 11:54:36 Normal pregnanc y in multigra dannie [id number] Completed 201704/23/2021 Encounte r for supervis ion of other normal pregnanc y, 2nd trimeste r;Record ed Elsewher e: No Locat ion: [facility] S ource: EHR Slot Router jenny: N Matildati ce ID: 0001 Levon lable Time: 09:00:00 AM Violette Wynn trini [facility] 1 11:55:00 Pregnanc y detectio n examinat ion Completed 201704/23/2021 Encounte r for pregnanc y test, result positive ;Recorde d Elsewher e: No Locat ion: [facility] S ource: EHR Slot Router jenny: N Matildati ce ID: 0001 Levon lable Time: 02:15:00 PM Violette Wynn trini [facility] [address] 11:55:[address] Concept Completed 201704/23/[address] manager exam (general ) (routine ) w/o abn findings ;Practic e ID: 0001 Violette feliz, [facility] 11:55:16 Antenata l screenin g Completed 201704/23/2021 Encounte r for antenata l screenin g for nuchal transluc ency;Pra ctice ID: 0001 Violette Wynnbrittani feliz [facility] 11:54:22 Pregnanc y, childbir th and puerperi um finding Completed 201704/23/2021 Encntr for suprvsn of normal first pregnanc y, unsp trimeste r;Practi ce ID: 0001 Violette feliz, [facility] 11:55:06 Antenata l screenin g for malforma tion Completed 201704/23/2021 Encounte r for antenata l screenin g for malforma tions;Pr actice ID: 0001 Violette feliz, [facility] 11:54:[address] Concept Completed 201804/23/2021 Maternal care for oth abnormal ity and damage, unsp;Pra ctice ID: 0001 Violette feliz, [facility] 11:55:12 Gestatio n period, 25 weeks [id number] Completed 201804/23/2021 25 weeks gestatio n of pregnanc y;Practi ce ID: 0001 Violette feliz [facility] 11:54:43 Gestatio n period, 32 weeks [id number] Completed 201804/23/2021 32 weeks gestatio n of pregnanc y;Practi ce ID: 0001 Violette feliz [facility] 11:54:46 False labor before 37 complete d weeks of gestatio n [id number] [id number] Completed 201804/23/2021 False labor before 37 complete d weeks of gest, third tri;Prac dasia ID: 0001 Violette feliz, [facility] 11:54:33 Gestatio n period, 34 weeks [id number] Completed 201804/23/2021 34 weeks gestatio n of pregnanc y;Practi ce ID: 0001 Violette feliz, [facility] 11:54:48 Finding of desire for urinatio n [id number] Completed 201904/23/2021 Urgency of urinatio n;Practi ce ID: 0001 Violette Ortiztz [facility], [facility] 11:54:40 Pregnanc y test negative [id number] Completed 201904/23/2021 Encounte r for pregnanc y test, result negative ;Practic e ID: 0001 Violette Wynn [facility] 11:55:[address] Concept Completed 201804/23/2021 Matern care for abnlt fetl hrt rate or rhym, 3rd tri, unsp;Rec orded Elsewher e: No Locat ion: Caleb [facility] S ource: EHR Slot Router jenny: N Practi ce ID: 0001 Levon lable Time: 01:30:00 PM Violette Ortiztz [facility] 11:55:14 Clinical finding Completed 201804/23/2021 Encounte r for surveill ance of injectab le contrace ptive;Re corded Elsewher e: No Locat ion: [facility] S ource: EHR Slot Router jenny: N Matildati ce ID: 0001 Levon lable Time: 11:30:00 AM Violette Tianna [facility] 1 11:54:26 Insertio n of intraute rine contrace ptive device Completed 201804/23/2021 Encounte r for insertio n of intraute rine contrace ptive device;R ecorded Elsewher e: No Locat ion: Caleb begum [facility] S ource: EHR Slot Router jenny: N Practi ce ID: 0001 Levon lable Time: 02:00:00 PM Violette feliz, [facility] 1 11:54:59 Gestatio n period, 38 weeks [id number] Completed 201804/23/2021 38 weeks gestatio n of pregnanc y;Practi ce ID: 0001 Violette Tianna [facility], [facility] 11:54:53 Pregnanc y [id number] Completed 202012/05/2021 Berenice feliz [facility] 2 14:15:31 Seizure [id number] Completed [facility] - [facility] (EEG 06/27) CBT @ [facility], no meds, f/u as needed Berenice feliz [facility] 2 14:15:21 Intraute rine of one twin Completed Lisa Snell MD [address], [place], [address], [facility] 1 14:30:06 Seen by cardiolo gy service [id number] Completed Consult note in chart - echo and holter WNL - f/u 3 months Berenice feliz [facility] 2 14:15:21 History of growth retardat ion [id number] 9108 Completed Per MFM start ASA 162mg QD & serial growth u/s & antenata l testing Berenice feliz [facility] 2 14:15:21 Anxiety [id number] Completed Hydroxyz ine PRN per MFM Berenice feliz, [facility] 2 14:15:21 Low lying placenta [id number] Completed 202009/27/2021 previa resolved 09/27 Berenice mesa [facility], [facility] 2 14:15:21 Chronic back pain [id number] Completed Pt referral , heat strip, maternit y belt Berenice mesa null, [facility] 2 14:15:21 Heart murmur [id number] Completed vasovaga l episode, f/u with cardio, echo and holter WNL Berenice mesa [facility] 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 2 14:15:21 Anxiety [id number] Active Hydroxyz ine PRN per MFM Berenice mesa [facility], [facility] 2 14:15:21 Problem Notes None recorded. Procedures Surgical History Date Name Laterality Status Provider Name and Address Organization Details Recorded Time 12/22/19 25 IUD Removal completed Herminia Gonzales CNM [address], [place], [address], [facility] 12/21/2024 13:51:37 08/12/20 24 Colposcopy completed Herminia Gonzales CNM [address], [place], [address], [facility] 08/12/2024 15:59:51 08/12/20 24 Colposcopy completed Violette Wynn [facility] 08/12/2024 14:56:51 08/12/20 24 colposcopy completed Violette Wynn [facility] 08/12/2024 14:56:45 06/29/20 24 Date of Last Pap Smear completed Violette Wynn [facility] 07/25/2024 16:44:37 06/11/20 22 IUD Insertion completed Herminia Gonzales CNM [address], [place], [address], [place] [facility] 06/12/2022 18:28:54 Imaging Results Imaging Date Name Status LastModified by Organiz ation Details LastModified Time 08/11/2024 US, breast, unilateral active HAYDEE [facility] [address], [place], [address], 08/11/2024 19:09:21 Procedure Notes None recorded. Medical Equipment None Reported. Allergies No known drug allergies Medications Name Sig Start Date Stop Date Status Note LastModified by Organization Details LastModified Time Prometriu m 200 mg capsule [facility] completed Not Available Not Available Not Available Mirena 21 mcg/24 hr (up to 8 years) 52 mg intrauter ine device as directed 12/21 completed mirena IUD inserted 2 and needs removed by 9 Not Available Not Available Not Available azithromy leyda 250 mg tablet take 4 tablet by oral route 12/28 completed Prescrib ed Elsewher e: No Locat ion: [facility] odify By: [email or web address] Encounte r DateTime : 12/25/19 01:30:00 PM Not Available Not Available Not Available fluconazo le 150 mg tablet take 1 tablet by oral route once 02/08 completed Not Available Not Available Not Available levetirac etam 500 mg tablet TAKE 1 TABLET BY MOUTH TWICE A DAY 04/10 completed Not Available Not Available Not Available Nystop 100,000 unit/gram topical powder APPLY TO THE AFFECTED AREA(S) BY TOPICAL ROUTE 2 TIMES PER DAY 2024 active Not Available Not Available Not Avai lable promethaz ine 12.5 mg tablet TAKE 1 TABLET BY MOUTH EVERY 6 TO 8 HOURS NEEDED 04/16 completed Not Available Not Available Not Available ondansetr on HCl 4 mg tablet TAKE 1 TABLET BY MOUTH 4 TIMES A DAY NEEDED FOR NAUSEA 04/10 completed Not Available Not Available Not Available Ferrex 150 mg iron capsule 02/08 completed Not Available Not Available Not Available penicilli n V potassium 500 mg tablet TAKE 1 TABLET BY MOUTH FOUR TIMES A DAY 06/29 completed Not Available Not Available Not Available meclizine 12.5 mg tablet TAKE 1 TABLET BY MOUTH UP TO 3 TIMES DAILY WITH ONSET OF SYMPTOMS 04/10 completed Not Available Not Available Not Available levofloxa leyda 250 mg tablet TAKE 1 TABLET BY MOUTH EVERY DAY 04/10 completed Not Available Not Available Not Available ciproflox acin 500 mg tablet TAKE 1 TABLET BY MOUTH EVERY 12 HOURS FOR 10 DAYS 04/10 completed Not Available Not Available Not Available sulfameth oxazole 800 mg-trimet hoprim 160 mg tablet TAKE 1 TABLET BY MOUTH EVERY 12 HOURS FOR 7 DAYS 04/10 completed Not Available Not Available Not Available Dramamine 50 mg chewable tablet chew 1 tablet by oral route every 6 hours as needed 04/10 completed Prescrib ed Sruthi e: Yes Loca tion: [facility] odify By: ilsa ospina DateTime : 06/23/20 02:15:00 PM Not Available Not Available Not Available butalbita l-acetami nophen-ca ffeine 50 mg-325 mg-40 mg tablet 06/11 completed Not Available Not Available Not Available cyprohept adine 4 mg tablet 06/11 completed Not Available Not Available Not Available alprazola m 0.25 mg tablet 04/10 completed Not Available Not Available Not Available magnesium oxide 400 mg (241.3 mg magnesium ) tablet TAKE 1 (ONE) TABLET BY MOUTH ONCE DAILY REASONS HEADACHE PROPHYLA XIS 06/11 completed Not Available Not Available Not Available Zoloft 50 mg tablet Take 1 tablet every day by oral route. 04/23 completed Not Available Not Available Not Available amitripty line 10 mg tablet TAKE ONE TABLET AT BEDTIME 04/10 completed Not Available Not Available Not Available cephalexi n 500 mg capsule TAKE 1 CAPSULE BY MOUTH EVERY 12 HOURS FOR 7 DAYS active Not Available Not Available No t Available cyanocoba kimberley (vit B-12) 1,000 mcg/mL injection solution Inject 1 mL every week by subcutan eous route. 12/21 completed Not Available Not Available Not Available promethaz ine 25 mg tablet take 1 tablet by oral route every 4 - 6 hours as needed 04/10 completed [facility] Locat ion: [facility] odify By: [email or web address] Doris ospina DateTime : 06/24/20 18 09:17:01 AM Not Available Not Available Not Available docusate sodium 100 mg capsule 06/11 completed Not Available Not Available Not Available sertralin e 25 mg tablet 04/23 completed Not Available Not Available Not Available omeprazol e 20 mg capsule,d elayed release 02/08 completed Not Available Not Available Not Available hydroxyzi ne HCl 25 mg tablet 12/21 completed Not Available Not Available Not Available ibuprofen 600 mg tablet 02/08 completed Not Available Not Available Not Available polyethyl blanca glycol 3350 17 gram/dose oral powder 06/11 completed Not Available Not Available Not Available scopolami ne 1 mg over 3 days transderm al patch 10/24 completed Not Available Not Available Not Available Vitamin D2 1,250 mcg (50,000 unit) capsule Take 1 capsule every week by oral route. 12/21 completed Not Available Not Available Not Available ondansetr on 4 mg disintegr ating tablet DISSOLVE 1 TABLET UNDER THE TONGUE EVERY 6 TO 8 HOURS NEEDED 06/11 completed Not Available Not Available Not Available medroxypr ogesteron e 150 mg/mL intramusc ular suspensio n INJECT 1 MILLILIT ER BY INTRAMUS CULAR ROUTE EVERY 3 MONTHS 02/08 completed Not Available Not Available Not Available metoclopr amide 10 mg tablet TAKE 1 TABLET BY MOUTH EVERY 6 TO 8 HOURS 08/31 /2022 completed Not Available Not Available Not Available amoxicill in 875 mg-potass ium clavulana te 125 mg tablet 02/08 completed Not Available Not Available Not Available hydroxyzi ne pamoate 25 mg capsule 04/10 completed Not Available Not Available Not Available escitalop kevin 5 mg tablet TAKE 1 TABLET BY MOUTH EVERY DAY 04/10 completed Not Available Not Available Not Available nitrofura ntoin monohydra te/macroc rystals 100 mg capsule take 1 capsule by oral route every 12 hours for 7 days with food 06/29 completed Not Available Not Available Not Available duloxetin e 20 mg capsule,d elayed release 04/10 completed Not Available Not Available Not Available promethaz ine 04/10 completed Not Available Not Available Not Available Dramamine 04/10 completed Not Available Not Available Not Available cholecalc iferol (vitamin D3) 25 mcg (1,000 unit) tablet 06/11 completed Not Available Not Available Not Available PNV-DHA 27 mg iron-1 mg-300 mg capsule Take 1 pill by mouth daily 06/11 completed Not Available Not Available Not Available Triveen-D uo DHA 29 mg-1 mg-400 mg oral pack Take one tablet and one soft gel capsule by oral route daily 2020 active Not Available Not Available Not Avai lable DHA 200 mg capsule TAKE 1 CAPSULE BY MOUTH EVERY DAY 06/11 completed Not Available Not Available Not Available Ana 14 mcg/24 hr (up to 3 years) 13.5 mg intrauter ine device as directed 03/04 completed Prescrib audrey Negro e: No Locat ion: [facility] M odify By: [email or web address] z Encoun ter DateTime : 03/04/20 02:00:00 PM Not Available Not Available Not Available Fioricet 50 mg-300 mg-40 mg capsule Take 1 capsule every 4-6 hours by oral route. 06/11 completed Not Available Not Available Not Available Xulane 150 mcg-35 mcg/24 hr transderm al patch APPLY 1 PATCH ONCE WEEKLY 04/10 completed Not Available Not Available Not Available Nighttime Sleep-Aid (doxylami ne) 25 mg tablet TAKE 1 (ONE) TABLET BY MOUTH AT BEDTIME REASONS NAUSEA AND VOMITING IN PREGNANC Y 06/11 completed Not Available Not Available Not Available 28 mg-800 mcg tablet 04/23 completed Prescrib audrey Negro e: Yes Loca tion: [facility] M odstacy By: ilsa ospina DateTime : 06/23/20 02:15:00 PM Not Available Not Available Not Available Vitals Date Recorded Body height Provider Name an d Address Organization Details Last Updated DateTime 09/15/2024 161.29 cm Violette Wynn [facility] 09/15/2024 13:30:16 Date Recorded Body height Body mass index (BMI) Body weight Provider Name and Address Organization Details Last Updated DateTime 09/21/2024 161.29 cm 26.3 kg/m2 07789.45 g Violette Wynn [facility] 09/21/2024 19:05:12 Date Recorded Body height Body mass index (BMI) Body weight Systolic blood pressure Diastolic blood pressure Provider Name and Address Organization Details Last Updated DateTime 12/21/2024 161.29 cm 25.5 kg/m2 43885.49 g 112 mm[Hg] 67 mm[Hg] Violette Wynn [facility] 12:07:38 Social History Question Answer Notes LastModified by Organizat ion Details LastModified Time Tobacco Smoking Status Never Smoker Anna feliz [facility] 02/09/2020 11:40:24 What Is Your Level Of Alcohol Consumption? Occasional [email or web address] Information not available 07/17/2020 If You Are , What Was Your Level Of Alcohol Consumption Prior To ? None [email or web address] Information not available 04/23/2021 Are You Blind Or Do You Have Difficulty Seeing? No [email or web address] Information not available 04/23/2021 What Is Your Level Of Caffeine Consumption? Occasional [email or web address] Information not available 04/23/2021 In The 14 Days Before Symptom Onset, Have You Had Close Contact With A Laboratory-[facility] COVID-19 While That Case Was Ill? No [email or web address] Information not available 04/23/2021 In The 14 Days Before Symptom Onset, Have You Had Close Contact With A Person Who Is Under Investigation For COVID-19 While That Person Was Ill? No [email or web address] Information not available 04/23/2021 Have You Been To An Area Known To Be High Risk For COVID-19? No [email or web address] Information not available 04/23/2021 Are You Deaf Or Do You Have Serious Difficulty Hearing? No [email or web address] Information not available 04/23/2021 What Type Of Diet Are You Following? REGULAR [email or web address] Information not available 04/23/2021 Do You Or Have You Ever Used E-cigarettes Or Vape? Never Used Electronic Cigarettes [email or web address] Information not available 07/17/2020 What Was The Date Of Your Most Recent Tobacco Screening? 12/21/2024 [email or web address] Information not available 12/21/2024 Have You Ever Been Counseled For Unhealthy Alcohol Use? No Information not available 04/23/2021 Do You Use Your Seat Belt Or Car Seat Routinely? Yes [email or web address] Information not available 04/23/2021 Do You Have Smoke And Carbon Monoxide Detectors In Your Home? Yes [email or web address] Information not available 04/23/2021 Do You Or Have You Ever Used Smokeless Tobacco? Never Used Smokeless Tobacco [email or web address] Information not available 07/17/2020 How Much Tobacco Do You Smoke? No [email or web address] Information not available 07/17/2020 Do You Feel Stressed (tense, Restless, Nervous, Or Anxious, Or Unable To Sleep At Night)? [id number] [email or web address] Information not available 04/23/2021 Do You Use Any Illicit Or Recreational Drugs? No [email or web address] Information not available 04/23/2021 Do You Use Sunscreen Routinely? Yes [email or web address] Information not available 04/23/2021 Has Tobacco Cessation Counseling Been Provided? No [email or web address] Information not available 04/23/2021 Sex: Unknown Functional Status Question Answer Note LastModified by Organizat ion Details LastModified Time Do you have difficulty walking or climbing stairs? No [email or web address] Information not available 11/27/2021 Are you able to walk? YESWOREST [email or web address] Information not available 04/23/2021 Are you able to care for yourself? Yes [email or web address] Information not available 11/27/2021 Do you have difficulty dressing or bathing? No [email or web address] Information not available 11/27/2021 What is your exercise level? Occasional [email or web address] Information not available 07/17/2020 Mental Status None recorded. Family History Relationship Description Onset Age of this Age Resolved Age Notes LastModified by Organization Details LastModified Time Mother Cyst of ovary [email or web address] Not available 2019 11:39:44 Maternal Grandmother Cyst of ovary [email or web address] Not available 2019 11:39:44 Maternal Grandfather Suspected lung cancer [email or web address] Not available 01/12 11:39:58 Maternal Grandfather Hypertensive disorder [email or web address] Not available 2019 11:40:04 Sister Anemia [email or web address] Not available 11:40:11 Paternal Aunt Female infertility [email or web address] Not available 01/12 11:40:22 Medical History Condition Response Allergies (Food, seasonal, environmental ) N Other N Breast Cancer N Drug/Latex Allergies/Reactions N Blood Transfusion N Dermatologic Disorders N Lung Disease N Defects or Inherited Disease N Breast Problem N Gestational Diabetes N Hematologic disorders N Anesthesia Complications N History of STI Y Deep Vein Thrombosis N Polycystic ovary syndrome N Anxiety Disorder Y Autoimmune disease N Arthritis N Infertility N Polyps N Acid Reflux (GERD) N History of abnormal pap Y Cancer N Stroke N Varicosities N Neurologic/Epilepsy N Endometriosis N High Cholesterol N Headaches N Fibromyalgia N Kidney Disease N Heart Problems N Kidney or Bladder Problems N Thyroid Problems N GI Problems N Eating Disorder N Anemia N Art (IVF or FET) N Psychiatric Illness N Ovarian Cancer N Diabetes N Pulmonary (TB, Asthma) N Hepatitis/Liver Disease N No Past Medical History N Eczema N Urinary Tract Infection N Abuse/Domestic Violence N Asthma N Trauma/Violence N Depression/ depression Y Heart Disease N Pre-Eclampsia N Hypertension N Osteoporosis N Thrombophilias N Gynecological History Statement/Question Response Abnormal Pap Y Date of Last Mammogram Date of LMP 12/07/2024 STIs/STDs Y Colposcopy 08/12/2024 Current Control Method None Date of Last Colonoscopy Date of DEXA bone scan Date of Last Pap Smear 06/29/2024 Desired Control Method LMP Unknown 04/23/2021 Obstetrics History GPAL:G 2 P 2 0 0 2 Type Value Full Term 2 Living 2 Total 2 Past Encounters Encounter ID Performer Location Encounter Start Date Encounter Closed Date Diagnosis/Indication Diagnosis SNOMED-CT Code Diagnosis ICD10 Code Diagnosis Note [id number] Marcy Fern [facility] [address],[place] [address] 02/09/2020 11:07:04 02/09/2020 15:19:42 Abnormal uterine bleeding 8594160880 9100 Z11.3 Patient is here for f/u TVUS for AUB from d/c Depo over 10mos ago. Her TVUS was reviewed today. It is WNL. She reports that her last period was 30 days from the last menses which is an improvemen t from the q2wk spotty periods she was having. She would like to continue to monitor periods for now. Agreeable to contacting office if irregular spotting returns. Requests STD screening today. No sx's. Wants as a precaution for [facility] ip. Time spent in visit is a total of 15 mins with at least 50% of visit consisting of counseling and review of plan of care. [id number] [facility] [address],[place] [address] 02/09/2020 11:07:51 02/09/2020 15:10:33 Abnormal uterine bleeding 4713793724 9100 N93.9 [id number] Herminia Gonzales CNM [place] [address],[place] [address] 07/17/2020 18:14:46 07/19/2020 18:53:10 Abnormal uterine bleeding 7759293288 9100 N93.9 Pain in pelvis 19280300 R10.2 [id number] Nydia Gant [place] [address],[place] [address] 11/20/2020 15:48:25 11/20/2020 15:56:06 Amenorrhea 73902968 N91.2 [id number] [facility] [address],[place] [address] 04/08/2021 11:12:22 04/08/2021 12:36:21 screening 676100366 Z36.87 [id number] [facility] [address],[place] [address] 04/16/2021 12:32:00 04/16/2021 13:55:17 Uncertain viability of 075047481 O36.80X0 Z3A.01 [id number] Herminia Gonzales [facility] [address],[place] [address] 04/23/2021 10:49:21 04/23/2021 12:38:54 Gynecologic examination 65827091 Z01.419 Amenorrhea 77571812 N91. 2 [id number] [facility] [address],[place] [address] 04/23/2021 10:48:51 04/23/2021 11:37:21 Uncertain viability of 052944549 O36.80X0 Z3A.01 [id number] Herminia Gonzales [facility] [address],[place] [address] 05/01/2021 12:49:48 05/01/2021 14:17:12 Routine care 171516575 Z34.90 [id number] [facility] [address],[place] [address] 05/16/2021 11:45:02 05/16/2021 12:39:00 Uncertain viability of 740821996 O36.80X0 Z3A.10 [id number] Herminia Gonzales [facility] [address],[place] [address] 05/17/2021 15:30:02 05/17/2021 16:15:31 [id number] Randy Roblero MD [place] [address],[place] [address] 05/31/2021 15:54:51 06/01/2021 09:44:52 Routine care 892141930 Z34.90 [id number] [facility] [address],[place] [address] 06/20/2021 11:55:14 06/20/2021 12:34:34 [id number] Herminia Gonzales [facility] [address],[place] [address] 06/28/2021 11:15:59 06/28/2021 12:19:09 Routine care 206580375 Z34.90 [id number] Herminia Gonzales [facility] [address],[place] [address] 07/24/2021 10:36:35 07/24/2021 11:36:07 Routine care 635782545 Z34.90 [id number] Lisa Snell MD [place] [address],[place] [address] 08/23/2021 13:29:52 08/23/2021 14:55:11 Anxiety 62038620 F41.9 History of growth retardation 8902994625 9108 Z87.59 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 [id number] Herminia Gonzales [facility] [address],[place] [address] 09/27/2021 13:55:36 09/27/2021 14:30:16 Routine care 426300371 Z34.90 [id number] Herminia Gonzales [facility] [address],[place] [address] 10/09/2021 17:52:39 10/11/2021 19:08:56 [id number] Rebekah Vazquez bhavesh [place] [address],[place] [address] 10/16/2021 17:00:01 10/16/2021 17:49:11 History of previous intrauterine growth restricted 9844138261 50054 Z87.59 [id number] Payton Mistry [place] [address],[place] [address] 10/16/2021 17:00:29 10/17/2021 10:47:40 care: poor obstetric history 907932892 O09.293 O09.893 Z3A.32 [id number] Herminia Gonzales [facility] [address],[place] [address] 10/16/2021 17:00:53 10/17/2021 10:46:53 Routine care 738011878 Z34.90 [id number] Rebekah Vazquez [facility] [address],[place] [address] 10/23/2021 16:56:47 10/24/2021 15:25:24 History of previous intrauterine growth restricted 9042821172 88704 Z87.59 [id number] [facility] [address],[place] [address] 10/23/2021 16:59:27 10/24/2021 15:25:08 care: poor obstetric history 695739687 O09.293 O09.893 Z3A.33 [id number] Herminia Gonzales [facility] [address],[place] [address] 10/23/2021 17:00:34 10/24/2021 16:59:22 [id number] Nabila Monzon [place] [address],[place] [address] 10/24/2021 10:10:04 10/24/2021 17:48:48 Routine care 319472375 Z34.91 [id number] Herminia Gonzales [facility] [address],[place] [address] 10/30/2021 16:55:10 10/31/2021 17:28:40 Routine care 046623266 Z34.90 [id number] Violette Wynn [place] [address] [place] [address] 10/28/2021 11:38:31 10/28/2021 15:00:11 growth restriction 57526093 O36.5999 [id number] [facility] [address] [place] [address] 10/28/2021 13:14:05 10/28/2021 13:29:10 condition affecting obstetrical care of mother 755338888 O36.8330 Z3A.34 [id number] Rebekah Vazquez cicibhavesh [place] [address],[place] [address] 10/30/2021 16:54:14 10/30/2021 18:26:13 History of previous intrauterine growth restricted 2493951850 34646 Z87.59 [id number] Chitra Collazo [place] [address],[place] [address] 10/30/2021 16:54:43 10/30/2021 18:28:57 condition affecting obstetrical care of mother 099588334 O36.8330 Z3A.34 [id number] Nydia Gant [place] [address],[place] [address] 11/06/2021 10:23:06 11/06/2021 12:10:33 History of growth retardation 8302653808 9108 Z87.59 [id number] [facility] [address],[place] [address] 11/06/2021 10:23:41 11/06/2021 11:38:09 care: poor obstetric history 355562857 O09.293 O09.893 Z3A.35 [id number] [facility] [address],[place] [address] 11/06/2021 10:24:08 11/06/2021 12:28:40 Routine care 167117503 Z34.90 [id number] [facility] [address] [place] [address] 11/13/2021 09:34:01 11/13/2021 10:35:32 care: poor obstetric history 563779983 O09.293 O09.893 Z3A.36 [id number] Herminia Gonzales [facility] [address],[place] [address] 11/13/2021 09:35:54 11/13/2021 10:34:35 [id number] Violette Wynn [place] [address],[place] [address] 11/13/2021 09:35:54 11/13/2021 10:34:35 Low lying placenta 947224152 O44.53 [id number] Rebekah Vazquez [facility] [address],[place] [address] 11/20/2021 17:01:02 11/20/2021 19:05:44 History of previous intrauterine growth restricted 6766458447 84543 Z87.59 [id number] Herminia Gonzales [facility] [address],[place] [address] 11/20/2021 17:01:38 11/20/2021 18:11:52 [id number] Nabila Monzon [place] [address],[place] [address] 11/25/2021 12:16:50 11/26/2021 17:30:42 Routine care 905840020 Z34.91 [id number] [facility] [address],[place] [address] 11/27/2021 12:11:00 11/27/2021 18:30:12 History of previous intrauterine growth restricted 3122232359 24426 Z87.59 [id number] Herminia Gonzales [facility] [address],[place] [address] 11/27/2021 12:11:18 11/27/2021 13:08:07 Routine care 760096906 Z34.90 [id number] Payton Mistry [place] [address] [place] [address] 11/27/2021 12:11:38 11/27/2021 13:30:02 care: poor obstetric history 603482359 O09.293 O09.893 Z3A.38 [id number] Herminia Gonzales [facility] [address] [place] [address] 12/27/2021 12:14:56 12/27/2021 12:56:51 care 898238242 Z39.2 [id number] Herminia Gonzales [facility] [address],[place] [address] 06/11/2022 18:20:15 06/13/2022 16:42:13 Contraception care management 483047817 Z30.9 Insertion of intrauterine contraceptive device 79023523 Z30.430 [id number] Randy Roblero MD [place] [address],[place] [address] 06/29/2024 17:35:50 06/30/2024 10:17:50 [id number] [facility] [address],[place] [address] 06/29/2024 18:18:14 06/30/2024 10:16:16 Pain in pelvis 72739387 R10.2 US wnl, plan pelvic floor PT, consider control pill if hormonal symptoms continuepa p and cultures collectedI UD in place confirmed by US Pain of left breast 1010 681395 N64.4 plan US, order for [place] Pruritic rash 85600404 L 28.2 left breast plan hydrocorti sone prn, take picture or come in when it presents for evaluation [id number] Herminia Gonzales [facility] [address],[place] [address] 08/12/2024 14:45:12 08/12/2024 16:04:48 Screening procedure 63209288 Z13.9 Low grade squamous intraepithelial lesion on cervical Papanicolaou smear 6510639375 9105 R87.612 follow up pending pathology Fatigue 13530045 R53.83 check labs [id number] [facility] [address],[place] [address] 08/25/2024 11:55:51 08/25/2024 12:10:32 Fatigue 44465106 R53.83 check labs [id number] [facility] [address],[place] [address] 09/02/2024 14:14:53 09/02/2024 14:24:43 Fatigue 48119442 R53.83 check labs [id number] Violette Wynn [place] [address],[place] [address] 09/15/2024 10:40:58 09/15/2024 14:00:14 Anemia 968697167 D64.9 [id number] Violette Wynn [place] [address],[place] [address] 09/21/2024 12:58:51 09/22/2024 09:48:39 Anemia 600397431 D64.9 [id number] Deanne Johnson [place] [address],[place] [address] 2024 12:29:23 2024 12:54:59 Anemia 914569494 D64.9 [id number] Herminia Gonzales CNM [place] [address],[place] [address] 12/21/2024 11:44:13 12/21/2024 14:03:20 Removal of intrauterine contraceptive device 2169211517 Z30.432 christiano well, barrier methods Mass of left breast 1224 701564 6257620 N63.20 plan breast US Health Concerns Section Related Observation LastModified by Organization Detai ls LastModified Time None Recorded Concern Status LastModified by Organization Details LastModified Time None Recorded Advance Directives Directive None Recorded Payers Encounter Date Sequence Insurance Name Policy Number Policy Rhodes Covered Member ID Rhodes Member ID Guarantor Name 09/02/2024 1 [place] [facility] Debi Merrill [id number] Debi Merrill 09/02/2024 1 R [id number] Haresh Nelson [id number] Debi Merrill 09/15/2024 1 [place] [facility] Debi Merrill [id number] Debi Merrill 09/15/2024 1 R [id number] Haresh Nelson [id number] Debi Merrill 09/21/2024 1 [place] [facility] Debi Merrill [id number] Debi Merrill 09/21/2024 1 R [id number] Haresh Singhsatinder [id number] Debi Merrill 2024 1 [place] [facility] Debi Merrill [id number] Debi Merrill 2024 1 R [id number] Haresh Nelson [id number] Debi Merrill 12/21/2024 1 [place] [facility] Debi Merrill [id number] Debi Merrill Notes Date Note Type Note Provider Name and Address Organization Details Recorded Time 12/21/2024 text/html Patient presents for IUD removal. also has breast nodule, left, x couple weeks, taking antibiotics and is smaller now. plans barrier methods for bcm Herminia Gonzales, CN [address], [place], [address], [facility] 12/21/2024 13:52:55 OBGyn Episode Ob Episode Information Episode Created Date Number of Fetuses Patient Bloodtype Patient rh Status Prepregnancy Weight lbs Domestic Partner Domestic Partner Phone Father Name Customer Operations Specialist Status 02/09/20 20 1 CLOSED Fetus Data First Name Last Name Admitted to NICU Weight (g) Sex Living Outcome Pediatric Complications Fetus ID Race Codes Race Delivery Type 2239.38 3704 M Full Term 982 Vaginal Delivery Irving Calculation Initial Irving Date Initial Exam Date Initial Exam Provider Initial Ultrasound Date Last Menstrual Period Date Ultra Sound Weeks Gestation 0 Eighteen To Twenty Week Irving Update Ultra Sound Date Fundal Height At Umbil Quickening Date Ultra Sound Latest Weeks Gestation Final Irving Confirmed By Final Irving Confirmed Date Final Irving Date Ultra Sound Latest Days Gestation 0 0 Menstrual History Last Menstrual Date Menses Monthly On Bcp Conception Prior Menses Frequency Hcg Plus Date Menarche Onset Age Delivery Information Delivery Date Delivery Type Labor Anesthesia Weeks Gestation Incision Type Labor Labor Length Hrs Delivered By Post Complications Tubal Sterilization Discharge Date Comments 9 38.2 poor growth Discharge Information Feeding Method Contraceptive Method Maternal HG B and HCT Levels Ob Episode Information Episode Created Date Number of Fetuses Patient Bloodtype Patient rh Status Prepregnancy Weight lbs Domestic Partner Domestic Partner Phone Father Name Customer Operations Specialist Status 05/31/20 21 1 O Positive 138 CLOSED Fetus Data First Name Last Name Admitted to NICU Weight (g) Sex Living Outcome Pediatric Complications Fetus ID Race Codes Race Delivery Type [facility] 3486.98 85 M true Full Term [id number] Vaginal Delivery Problems Problem Notes [facility] visit only 09/11. Rpt Level II u/s on 09/27 - [facility] rec no further f/u unless indicated (10/25 [facility]- Waiting for r/c to cancel u/s with them 10/08)Neg CF 2017 & declined SMAvaginal progesterone 200mg started Problem Name Start Date End Date Resolution Snomed Code Not e Seen by cardiology service [id number] Consult note in chart - echo and holter WNL - f/u 3 months Anxiety MEDICATION [id number] Hydroxyzi ne PRN per [facility] Seizure [id number] [facility] - PSEUDOSZ (EEG 06/27) CBT @ [facility], no meds, f/u as needed Low lying placenta 07/03/2021 09/27/2021 SELFRESOLVED [id number] previa resolved 09/27 History of growth retardation MEDICATION [id number] Per M start ASA 162mg QD & serial growth u/s & testing 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 Chronic back pain [id number] Pt referral, heat strip, maternity belt Heart murmur [id number] vasovag al episode, f/u with cardio, echo and holter WNL Irving Calculation Initial Irving Date Initial Exam Date Initial Exam Provider Initial Ultrasound Date Last Menstrual Period Date Ultra Sound Weeks Gestation 11/30/2021 05/31/2021 04/13/2021 7 Eighteen To Twenty Week Irving Update Ultra Sound Date Fundal Height At Umbil Quickening Date Ultra Sound Latest Weeks Gestation Final Irving Confirmed By Final Irving Confirmed Date Final Irving Date Ultra Sound Latest Days Gestation 0 [email or web address] 06/03/2021 12/09/19 22 0 Pre- Flowsheet Flowsheet Date 05/31/2021 Flynn Score Blood Edema Fundus Height Fundus Units Glucose Ketones Leukocytes Nitrite Labor Signs Protein Cervic Dilation Cervic Effacement Cervic Station 13 Type Weight in lbs Pre/Post Dialysis Refused Weight 136.634750208065 BP Diastolic BP Location Tested BP Systolic BP Type 65 R arm 114 sitting Fetus Heart Rate Present A 145 Fetus Movement Comments this patient is a 20-year-ol d 2 para 1001 at 13 weeks gestation who presents for initial care. The patient's so far is complicated by a undiagnosed neurologic or cardiac concern. Patient appears to have seizures though EEG is not indicative of epilepsy. there is a concern about pseudoseizures, organic neurologic disease, and cardiac arrhythmia. She is postponing genetic testing. She will begin routine care. To have MFM consultation. She has neurology and cardiology consult is pending. Flowsheet Date 06/20/2021 Flynn Score Blood Edema Fundus Height Fundus Units Glucose Ketones Leukocytes Nitrite Labor Signs Protein Cervic Dilation Cervic Effacement Cervic Station Type Weight in lbs Pre/Post Dialysis Refused BP Diastolic BP Location Tested BP Systolic BP Type Fetus Heart Rate Present Fetus Movement Comments Flowsheet Date 06/28/2021 Flynn Score Blood Edema Fundus Height Fundus Units Glucose Ketones Leukocytes Nitrite Labor Signs Protein Cervic Dilation Cervic Effacement Cervic Station neg trace trace Type Weight in lbs Pre/Post Dialysis Refused Weight 138.966622307201 BP Diastolic BP Location Tested BP Systolic BP Type 55 96 Fetus Heart Rate Present Fetus Movement A Yes Comments patient states that having s ome back pain, discharge, swelling, nausea and vomiting. doing well, has mfm appt soon, no seizures, dizzy, reviewed precautions f/u 4 weeks Flowsheet Date 07/24/2021 Flynn Score Blood Edema Fundus Height Fundus Units Glucose Ketones Leukocytes Nitrite Labor Signs Protein Cervic Dilation Cervic Effacement Cervic Station neg none trace Type Weight in lbs Pre/Post Dialysis Refused Weight 144.686539247283 BP Diastolic BP Location Tested BP Systolic BP Type 65 103 Fetus Heart Rate Present A 149 Present Fetus Movement A Yes Comments patient is having contractio ns, kidney pain and discharge. reviewed PTL precautions, send urine for culture, if neg consider kidney ultrasound Flowsheet Date 08/23/2021 Flynn Score Blood Edema Fundus Height Fundus Units Glucose Ketones Leukocytes Nitrite Labor Signs Protein Cervic Dilation Cervic Effacement Cervic Station none 23 trace Type Weight in lbs Pre/Post Dialysis Refused Weight 149.418528571550 BP Diastolic BP Location Tested BP Systolic BP Type 73 122 Fetus Heart Rate Present A 145 Fetus Movement A Yes Comments Back pain is gone. MFM compl ete anatomy, wnl, low lying placenta resolved. Back there for growth this week, if normal, wants to do further growth US here, will schedule in 4 weeks for h/o IUGR. A few ctx per day, precautions given. 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 Has appt at [facility] for counseling re this on09/04. Had first COVID vaccine, second on . Got flu shot. Discussed and encouraged Tdap. Flowsheet Date 09/27/2021 Flynn Score Blood Edema Fundus Height Fundus Units Glucose Ketones Leukocytes Nitrite Labor Signs Protein Cervic Dilation Cervic Effacement Cervic Station neg trace trace Type Weight in lbs Pre/Post Dialysis Refused Weight 156.993205042560 BP Diastolic BP Location Tested BP Systolic BP Type 62 109 Fetus Heart Rate Present A 154 Present Fetus Movement A Yes Comments patient states that having p ain, back pain, contractions, discharge and swelling. rib pain around to back constant does not seem to worsen after eating, bp wnl, some contractions, swelling and pain in front of legs, gct today reviewed precautions, cbc and cmp today as well, declined flexeril, ok to try tylenol Flowsheet Date 10/09/2021 Fylnn Score Blood Edema Fundus Height Fundus Units Glucose Ketones Leukocytes Nitrite Labor Signs Protein Cervic Dilation Cervic Effacement Cervic Station neg trace 31 trace Type Weight in lbs Pre/Post Dialysis Refused Weight 160.871603845651 BP Diastolic BP Location Tested BP Systolic BP Type 75 110 Fetus Heart Rate Present A 144 Fetus Movement A Yes Comments reviewed precautions, also p reterm precautions, passed 3 hour GTT but close, reviewed diet a little higher in protein and a little less sugar and carbs, has growth scheduled, no hx of seizure. lost mucous plug, f/u one week Flowsheet Date 10/16/2021 Flynn Score Blood Edema Fundus Height Fundus Units Glucose Ketones Leukocytes Nitrite Labor Signs Protein Cervic Dilation Cervic Effacement Cervic Station Type Weight in lbs Pre/Post Dialysis Refused BP Diastolic BP Location Tested BP Systolic BP Type Fetus Heart Rate Present Fetus Movement Comments Flowsheet Date 10/16/2021 Flynn Score Blood Edema Fundus Height Fundus Units Glucose Ketones Leukocytes Nitrite Labor Signs Protein Cervic Dilation Cervic Effacement Cervic Station Type Weight in lbs Pre/Post Dialysis Refused BP Diastolic BP Location Tested BP Systolic BP Type Fetus Heart Rate Present Fetus Movement Comments Flowsheet Date 10/16/2021 Flynn Score Blood Edema Fundus Height Fundus Units Glucose Ketones Leukocytes Nitrite Labor Signs Protein Cervic Dilation Cervic Effacement Cervic Station neg trace trace Type Weight in lbs Pre/Post Dialysis Refused Weight 160.417650912236 BP Diastolic BP Location Tested BP Systolic BP Type 74 113 Fetus Heart Rate Present Fetus Movement A Yes Comments patient is having cramping. discharge, swelling and nausea. Patient is also having some cramping with urination. urine dip in office was normal. growth 54 & bpp 05/19 doing well, precautions reviewed f/u 1 week, call for preadmit Flowsheet Date 10/23/2021 Flynn Score Blood Edema Fundus Height Fundus Units Glucose Ketones Leukocytes Nitrite Labor Signs Protein Cervic Dilation Cervic Effacement Cervic Station Type Weight in lbs Pre/Post Dialysis Refused BP Diastolic BP Location Tested BP Systolic BP Type Fetus Heart Rate Present Fetus Movement Comments Flowsheet Date 10/23/2021 Flynn Score Blood Edema Fundus Height Fundus Units Glucose Ketones Leukocytes Nitrite Labor Signs Protein Cervic Dilation Cervic Effacement Cervic Station Type Weight in lbs Pre/Post Dialysis Refused BP Diastolic BP Location Tested BP Systolic BP Type Fetus Heart Rate Present Fetus Movement Comments Flowsheet Date 10/23/2021 Flynn Score Blood Edema Fundus Height Fundus Units Glucose Ketones Leukocytes Nitrite Labor Signs Protein Cervic Dilation Cervic Effacement Cervic Station neg trace trace Type Weight in lbs Pre/Post Dialysis Refused Weight 159.154536209556 BP Diastolic BP Location Tested BP Systolic BP Type 70 111 Fetus Heart Rate Present Fetus Movement A Yes Comments patient states that having l ow back pain, cramping, contractions, discharge, swelling, and nausea. Flowsheet Date 10/24/2021 Flynn Score Blood Edema Fundus Height Fundus Units Glucose Ketones Leukocytes Nitrite Labor Signs Protein Cervic Dilation Cervic Effacement Cervic Station none none trace 2cm 70% -3 Type Weight in lbs Pre/Post Dialysis Refused Weight 158.734019399935 BP Diastolic BP Location Tested BP Systolic BP Type 75 119 Fetus Heart Rate Present Fetus Movement A Yes Comments Still having contractions. U nable to give me an amount or frequency. They were worse last night. Still having rectal pressure. Pt sent to L&D for further evaluation of pre term contractions. Flowsheet Date 10/28/2021 Flynn Score Blood Edema Fundus Height Fundus Units Glucose Ketones Leukocytes Nitrite Labor Signs Protein Cervic Dilation Cervic Effacement Cervic Station Type Weight in lbs Pre/Post Dialysis Refused Weight 160.073578779318 BP Diastolic BP Location Tested BP Systolic BP Type 80 121 Fetus Heart Rate Present Fetus Movement Comments Flowsheet Date 10/28/2021 Flynn Score Blood Edema Fundus Height Fundus Units Glucose Ketones Leukocytes Nitrite Labor Signs Protein Cervic Dilation Cervic Effacement Cervic Station Type Weight in lbs Pre/Post Dialysis Refused BP Diastolic BP Location Tested BP Systolic BP Type Fetus Heart Rate Present Fetus Movement Comments Flowsheet Date 10/30/2021 Flynn Score Blood Edema Fundus Height Fundus Units Glucose Ketones Leukocytes Nitrite Labor Signs Protein Cervic Dilation Cervic Effacement Cervic Station Type Weight in lbs Pre/Post Dialysis Refused BP Diastolic BP Location Tested BP Systolic BP Type Fetus Heart Rate Present Fetus Movement Comments Flowsheet Date 10/30/2021 Flynn Score Blood Edema Fundus Height Fundus Units Glucose Ketones Leukocytes Nitrite Labor Signs Protein Cervic Dilation Cervic Effacement Cervic Station Type Weight in lbs Pre/Post Dialysis Refused BP Diastolic BP Location Tested BP Systolic BP Type Fetus Heart Rate Present Fetus Movement Comments Flowsheet Date 10/30/2021 Flynn Score Blood Edema Fundus Height Fundus Units Glucose Ketones Leukocytes Nitrite Labor Signs Protein Cervic Dilation Cervic Effacement Cervic Station neg trace trace 3cm 60% -2 Type Weight in lbs Pre/Post Dialysis Refused Weight 164.78009898752 BP Diastolic BP Location Tested BP Systolic BP Type 75 127 Fetus Heart Rate Present Fetus Movement A Yes Comments patient is having some pain, contractions, discharge, swelling and nausea. precautions reviewed bpp 07/21 trini wnl, schedule preadmission f/u one week no cervical change since admission for PTL Flowsheet Date 11/06/2021 Flynn Score Blood Edema Fundus Height Fundus Units Glucose Ketones Leukocytes Nitrite Labor Signs Protein Cervic Dilation Cervic Effacement Cervic Station Type Weight in lbs Pre/Post Dialysis Refused BP Diastolic BP Location Tested BP Systolic BP Type Fetus Heart Rate Present Fetus Movement Comments Flowsheet Date 11/06/2021 Flynn Score Blood Edema Fundus Height Fundus Units Glucose Ketones Leukocytes Nitrite Labor Signs Protein Cervic Dilation Cervic Effacement Cervic Station Type Weight in lbs Pre/Post Dialysis Refused BP Diastolic BP Location Tested BP Systolic BP Type Fetus Heart Rate Present Fetus Movement Comments Flowsheet Date 11/06/2021 Flynn Score Blood Edema Fundus Height Fundus Units Glucose Ketones Leukocytes Nitrite Labor Signs Protein Cervic Dilation Cervic Effacement Cervic Station neg trace trace Type Weight in lbs Pre/Post Dialysis Refused Weight 162.792705648100 BP Diastolic BP Location Tested BP Systolic BP Type 79 116 Fetus Heart Rate Present Fetus Movement A Yes Comments patient is having some cramp ing, discharge, swelling, and nausea. bpp 8/8 vertex, precautions reviewed Flowsheet Date 11/13/2021 Flynn Score Blood Edema Fundus Height Fundus Units Glucose Ketones Leukocytes Nitrite Labor Signs Protein Cervic Dilation Cervic Effacement Cervic Station Type Weight in lbs Pre/Post Dialysis Refused BP Diastolic BP Location Tested BP Systolic BP Type Fetus Heart Rate Present Fetus Movement Comments Flowsheet Date 11/13/2021 Flynn Score Blood Edema Fundus Height Fundus Units Glucose Ketones Leukocytes Nitrite Labor Signs Protein Cervic Dilation Cervic Effacement Cervic Station neg trace trace Type Weight in lbs Pre/Post Dialysis Refused Weight 164.42267901722 BP Diastolic BP Location Tested BP Systolic BP Type 69 119 Fetus Heart Rate Present Fetus Movement A Yes Comments patient is having some press ure, contractions, discharge, swelling and nausea. bpp 8/10 reassuring but non reactive NST, doing well contractions and pressure increasing, reviewed labor precautions f/u one week if no spontaneous labor plan MIL at 39 weeks Flowsheet Date 11/13/2021 Flynn Score Blood Edema Fundus Height Fundus Units Glucose Ketones Leukocytes Nitrite Labor Signs Protein Cervic Dilation Cervic Effacement Cervic Station Type Weight in lbs Pre/Post Dialysis Refused Weight 164.95396101830 BP Diastolic BP Location Tested BP Systolic BP Type 69 119 Fetus Heart Rate Present Fetus Movement Comments Flowsheet Date 11/20/2021 Flynn Score Blood Edema Fundus Height Fundus Units Glucose Ketones Leukocytes Nitrite Labor Signs Protein Cervic Dilation Cervic Effacement Cervic Station Type Weight in lbs Pre/Post Dialysis Refused Weight 168.363457132631 BP Diastolic BP Location Tested BP Systolic BP Type 66 118 Fetus Heart Rate Present Fetus Movement Comments NR NST with decels noted. Pe r SP, pt to L & D for extended monitoring and BPP. MK, RN Flowsheet Date 11/20/2021 Flynn Score Blood Edema Fundus Height Fundus Units Glucose Ketones Leukocytes Nitrite Labor Signs Protein Cervic Dilation Cervic Effacement Cervic Station Type Weight in lbs Pre/Post Dialysis Refused BP Diastolic BP Location Tested BP Systolic BP Type Fetus Heart Rate Present Fetus Movement Comments Flowsheet Date 11/20/2021 Flynn Score Blood Edema Fundus Height Fundus Units Glucose Ketones Leukocytes Nitrite Labor Signs Protein Cervic Dilation Cervic Effacement Cervic Station Type Weight in lbs Pre/Post Dialysis Refused BP Diastolic BP Location Tested BP Systolic BP Type Fetus Heart Rate Present Fetus Movement Comments Flowsheet Date 11/25/2021 Flynn Score Blood Edema Fundus Height Fundus Units Glucose Ketones Leukocytes Nitrite Labor Signs Protein Cervic Dilation Cervic Effacement Cervic Station none none trace 4cm 50% -2 Type Weight in lbs Pre/Post Dialysis Refused Weight 169.609532173090 BP Diastolic BP Location Tested BP Systolic BP Type 83 122 Fetus Heart Rate Present A 139 Fetus Movement A Yes Comments Doing well. Contractions irr egular. Desires membrane sweep. Labor precautions discussed. Flowsheet Date 11/27/2021 Flynn Score Blood Edema Fundus Height Fundus Units Glucose Ketones Leukocytes Nitrite Labor Signs Protein Cervic Dilation Cervic Effacement Cervic Station Type Weight in lbs Pre/Post Dialysis Refused BP Diastolic BP Location Tested BP Systolic BP Type Fetus Heart Rate Present Fetus Movement Comments Flowsheet Date 11/27/2021 Flynn Score Blood Edema Fundus Height Fundus Units Glucose Ketones Leukocytes Nitrite Labor Signs Protein Cervic Dilation Cervic Effacement Cervic Station neg trace trace 4cm 70% -1 Type Weight in lbs Pre/Post Dialysis Refused Weight 169.984817620126 BP Diastolic BP Location Tested BP Systolic BP Type 78 125 Fetus Heart Rate Present Fetus Movement A Yes Comments PATIENT STATES THAT HAVING C RAMPING, DISCHARGE, CONTRACTIONS, SWELLING AND NAUSEA. nst reassuring plan bpp, IOL at 39 weeks Flowsheet Date 11/27/2021 Flynn Score Blood Edema Fundus Height Fundus Units Glucose Ketones Leukocytes Nitrite Labor Signs Protein Cervic Dilation Cervic Effacement Cervic Station Type Weight in lbs Pre/Post Dialysis Refused BP Diastolic BP Location Tested BP Systolic BP Type Fetus Heart Rate Present Fetus Movement Comments Menstrual History Last Menstrual Date Menses Monthly On Bcp Conception Prior Menses Frequency Hcg Plus Date Menarche Onset Age Genetic Screening And Infection History Question Response Note Mental Retardation/Autism false Patient's Age Will Be 35 Years Or Older At Estim ated Date of Delivery false Thalassemia (Ghanaian, Djiboutian, Mediterranean, Or Background): MCV < 80 false Neural Tube Defect (Meningomyelocele, Spina Bifi da, Or Anencephaly) false Congenital Heart Defect false Down Syndrome false Marlo-Sachs (eg, Zoroastrianism, Cajun, Swedish-Trinidadian) f alse Da Disease false Sickle Cell Disease Or Trait () false Hemophilia Or Other Blood Disorders false Muscular Dystrophy false Cystic Fibrosis false Hall's Chorea false Intellectual Disability/Autism false If Yes, Was Person Tested For Fragile X? false Other Inherited Genetic Or Chromosomal Disorder false Maternal Metabolic Disorder (eg, Type 1 Diabetes , PKU) false Patient Or Baby's Father Had A Child With Defects Not Listed Above false Recurrent Loss, Or A Stillbirth false Medications (including Suppl ements, Vitamins, Herbs, OTC Drugs), Illicit/Recreational Drugs, Alcohol false If Yes, Agent(s) And Strength/Dosage false Any Other Genetic History false Live With Someone With TB Or Exposed To TB false Patient Or Partner Has History Of Genital Herpes false Rash Or Viral Illness Since Last Menstrual Perio d false History Of STD, Gonorrhea, Chlamydia, HPV, Syphi lis false Other Infection History false History of HIV false History of Hepatitis false Prior GBS-infected child false Hemoglobinopathy Or Carrier false Other Structural Defect false Recent Travel History Outside of Country false Delivery Information Delivery Date Delivery Type Labor Anesthesia Weeks Gestation Incision Type Labor Labor Length Hrs Delivered By Post Complications Tubal Sterilization Discharge Date Comments [facility] idural 38.4 false Herminia Gonzales [facility] Discharge Information Feeding Method Contraceptive Method Maternal HG B and HCT Levels
--- OUTSIDE RECORDS SUMMARY | 2024-12-28 14:03 | XMS_ITS | Clinical Summary ---
Author Organization [facility] Address [address] [place] [address] Care Team Providers Care Production Quality Analyst Name Role Phone Merry Augustine MD Primary Care Provider Allergies No known active allergies Medications Norgestimate-Ethi nyl Estradiol (ORTHO TRI-CYCLEN, 28,) 0.18/0.215/0.25 MG-35 MCG tabletIndications :Encounter for initial prescription of contraceptive pills Take 1 tablet by mouth daily. 28 tablet 3 9 Active Additional Information Patient not taking.Reported on 12/28/2024 Active Problems Problem Noted Date Diagnosed Date Dysmenorrhea 01/26/2014 Overview (11/05/2018): Date Onset: 01/26/2014 Menorrhagia 01/26/2014 Overview (11/05/2018): Date Onset: 01/26/2014 Encounters Date Type Department Care Team Description 12/28/2024 10:40 AM CDT Office Visit [facility] Family & Internal Medicine [facility] [address] [place] [address] Ania Sandhu, PA Breast Problem ( Patient is here for lump on Lt Breast, and another lump above that is scabbed, excessive bleeding, appeared 1 mo ago, having pain for a couple months) 12/28/2024 Travel from Last 3 Months Immunizations Name Administration Dates Next Due Dtap (Generic) 01/13/2003, 0,05/06/1999,02/10,01/02/1999 HPV 05/25/2014,05/23/2013,06/03/2011 Hepatitis A (Generic) 06/03/2011 Hepatitis A Vaccine - 2 Dose 05/23/2013,06/03/20 11 Hepatitis B 02/04/2000,03/05/1999,01/02/1999 Hib (Generic) 02/04/2000,03/05/1999,01/02/1999 Hib-Hepatitis B (Comvax) 02/04/2000,03/05/1999,0 01/02/1999 Influenza (Generic) 08/15/2008 MENINGOCOCCAL A C Y&W-135 oligosaccharide (MENVEO) 05/25/2014,05/23/2013 MMR (Generic) 01/13/2003,11/05/1999 Meningococcal (Generic) 05/25/2014,05/23/2013 Opv 11/05/1999,03/05/1999,01/02/1999 Polio Ipv (Generic) 01/13/2003 Tdap (Generic) 06/03/2011 Varicella Vaccine 05/25/2014,11/05/1999 Family History Medical History Relation Comments Hypertension Maternal Grandfather Diabetes Paternal Grandmother Relation Status Comments Maternal Grandfather Paternal Grandmother Social History Tobacco Use Types Packs/Day Years [...] Mass Index 25.86 12/28/2024 10:43 AM CDT Plan of Treatment Health Maintenance Due Date Last Done Comments Annual Physical 2001 Hepatitis C 2016 DTaP, Tdap and Td Vaccines (7 - Td or Tdap) 06/03/2021 06/03/2011, 01/13/2003, 01/13/2003, Additional history exists COVID-19 Vaccine ( season) 2024 Influenza Adult (#1) 2024 08/15/2008 Cervical Cancer Screening Pap Smear (Age 21 to 29) Every 3 Years 06/29/2027 06/29/2024, 06/29/2024, 06/29/2024, Additional history exists Cervical Cancer Screening 06/29/2027 Hepatitis B Vaccines Completed 02/04/2000, 02/04/2000, 03/05/1999, Additional history exists HPV Vaccines Completed 05/25/2014, 05/12, 06/03/2011 Meningococcal Vaccine Aged Out 05/25/2014 , 05/25/2014, 05/23/2013, Additional history exists No longer eligible based on patient's age to complete this topic Meningococcal B Vaccine Aged Out No l onger eligible based on patient's age to complete this topic Pneumococcal Vaccine: Pediatrics (0 to 5 Years) and At-Risk Patients (6 to 64 Years) Aged Out No longer eligible based on patient's age to complete this topic RSV Immunizations Under 20 Months Aged Out No longer eligible based on patient's age to complete this topic Insurance MEDICAID Care Teams Production Quality Analyst Relationship Specialty Start Date End Date Merry Augustine MD [address] [place] [address] PCP - General FAMILY PRACTICE 04/03/21
--- OUTSIDE RECORDS SUMMARY | 2024-12-28 14:03 | XMS_ITS | Encounter Summary ---
Author Organization [facility] Address [facility] [address] [place] [address] Care Team Providers Care Youth Manager Name Role Phone Merry Augustine MD Primary Care Provider Encounter Details Date Type Department Care Team (Latest Contact Info) Description 12/28/2024 Travel Social History Tobacco Use Types Packs/Day Years Used Date Smoking Tobacco: Never Smokeless Tobacco: Never Alcohol Use Standard Drinks/Week Comments No 0 [...] on file documented as of this encounter Plan of Treatment Not on file documented as of this encounter Visit Diagnoses Not on filedocumented in this encounter Care Teams Youth Manager Relationship Specialty Start Date End Date Merry Augustine MD [address] [place] [address] PCP - General FAMILY PRACTICE 04/03/21 documented as of this encounter
== END 2024-12-28 12:37 | disposition home or self-care (01) ==
LOC: ANHIMG 12:37
PROVIDERS: PCP Family Medicine; Visit Provider Advanced Practice Midwife
DX: N64.4 Mastodynia (principal); N63.0 Unspecified lump in unspecified breast
CPT/HCPCS: 76642